=== PATIENT | female | born 1955 | race Caucasian/White ===

== ENCOUNTER 2019-11-30 09:30 | Emergency (ER) | payer MEDICARE, MEDICAID, SELFPAY ==
--- NOTE | ~2019-11-30 | CT_ITS ---
EXAMINATION: CT abdomen pelvis w con DATE: 11/30/2019 11:28 INDICATION: Abdominal pain. Constipation. TECHNIQUE: Computed tomography (CT) of the abdomen and pelvis was performed with 100 cc Omnipaque 350 intravenous contrast. Automated exposure control and iterative reconstruction technique were employe d. Exam dose: 1479.94 mGy-cm total exam DLP. COMPARISON: None. FINDINGS: There are calcified pulmonary granulomas in the lower lobes. No pulmonary infiltrate or con solidation is noted at the lung bases. Foramen of Morgagni fat and lateral segment left hepatic herniation is noted. Status post cholecystectomy. No hepatic, splenic, pancreatic, adrenal space-occupying mass lesion is evident. There is bilateral renal scarring, right greater than left. Approximately one or 2 pinpoint nonobstru cting right renal stones and several possible pinpoint nonobstructing left renal stones may be presen t; nephrolithiasis would be better evaluated on noncontrast examination. Approximately 6 mm exophytic anterior upper pole right renal cyst is suggested. No ureteral calculus or hydroureteronephrosis. There is a small amount of air within the nondependent aspect of the urinary bladder. There is diffus e bladder wall thickening. There is a Karimi catheter within the urinary bladder, which likely account s for the air. The uterus and adnexal areas are unremarkable. There is atherosclerotic calcification of the abdominal aorta and at the origins of celiac and superi or mesenteric and renal arteries, as well as bilateral iliac artery calcifications. No abdominal aort ic aneurysm. No intraperitoneal or retroperitoneal or pelvic mass lesion or adenopathy or ascites is evident. There is a prominent amount of fecal material within the colon. No bowel obstruction is evident. No i ntraperitoneal free air. There is an upper right ventral fat-containing abdominal wall hernia measuring up to approximately 5. 5 cm maximal transverse dimension. Additional smaller fat-containing supraumbilical right ventral abd ominal wall hernia is noted, in addition to a small fat-containing umbilical hernia. There is skin thickening and some subcutaneous fat stranding in the anterior abdominal wall. Degenerative changes of the thoracic and lumbar spine including degenerative disc disease at L5-S1. N o suspicious osteolytic or osteoblastic lesions are noted IMPRESSION: Status post cholecystectomy Bilateral renal scarring; cannot exclude small pinpoint nonobstructing kidney stones 6 mm right renal cyst Diffuse bladder wall thickening; recommend correlation for cystitis Prominent amount of fecal material within the colon, consistent with history of constipation; no lynn l obstruction is evident Right supraumbilical ventral abdominal wall fat-containing hernias and small fat-containing umbilical hernia Reviewed, dictated and finalized at [facility] Reviewed, dictated and finalized at [facility]. IMPRESSION: Status post cholecystectomy Bilateral renal scarring; cannot exclude small pinpoint nonobstructing kidney s tones 6 mm right renal cyst Diffuse bladder wall thickening; recommend correlation for cystitis Prominent amount of fecal material within the colon, consistent with history of constipation; no bowel obstruction is evident Right supraumbilical ventral abdominal wall fat-containing hernias and small fa t-containing umbilical hernia
[2019-11-30 09:33] VITALS: BP 183/81; PULSE 84; RESP 27; TEMP 37; O2SAT 90
--- NOTE | 2019-11-30 10:41 | ED.ABDPAIN ---
HPI - Abdominal Pain General Chief Complaint: Abdominal Pain Stated Complaint: abd pain Time Seen by Provider: 11/30/19 10:31 Source: patient Mode of arrival: ambulatory Limitations: no limitations History of Present Illness HPI narrative: Patient is a 64-year-old female who presents to the emergency department with complaint of abdominal pain. Patient reports onset of symptoms a couple of weeks ago. Patient was significantly constipated and took laxatives with alleviation of her constipation, but reports persistent burning sensation all across her abdomen since that time. Patient states the pain has persisted and feels like it is getting worse. She has more significant pain notably in the left lower quadrant compared to the rest of her abdomen. She states she thinks she may be getting constipated again she has not had a bowel movement in a couple of days. Patient has chronic indwelling Karimi catheter for chronic bladder problems MD elicited complaint: abdominal pain Pertinent past history: constipation Onset (ago): week(s) Pain Consistency: constant Location: diffuse and LLQ (Worst) Quality: burning Associated symptoms: constipation Treatments prior to arrival: other (took laxatives) Related Data Home Medications Medication Instructions Recorded Confirmed amlodipine 10 mg tablet 10 mg PO DAILY 08/13/19 11/30/19 blood sugar diagnostic #10 each 08/13/19 08/13/19 citalopram 20 mg tablet 20 mg PO DAILY 08/13/19 08/13/19 flash glucose sensor #1 each 08/13/19 08/13/19 levothyroxine 75 mcg tablet 75 mcg PO QAM tablet 08/13/19 11/30/19 lisinopril 40 mg tablet 40 mg PO DAILY 08/13/19 11/30/19 omeprazole 20 mg capsule,delayed 20 mg PO DAILY 08/13/19 11/30/19 release pravastatin 80 mg tablet 80 mg PO DAILY 08/13/19 11/30/19 pregabalin 100 mg capsule 100 mg PO BID 08/13/19 08/13/19 warfarin 4 mg tablet 4 mg PO DAILY 08/13/19 11/30/19 fluticasone furoate mcg INHALATION 11/30/19 hydrochlorothiazide 12.5 mg PO DAILY 11/30/19 11/30/19 Allergies Allergy/AdvReac Type Severity Reaction Status Date / Time Sulfa (Sulfonamide Allergy Unknown Unknown Verified 11/30/19 09:41 Antibiotics) cephalexin Allergy Unknown Verified 11/30/19 09:41 Review of Systems Review of Systems: All systems reviewed & are unremarkable except as noted in HPI and below Gastrointestinal: Gastrointestinal: Reports abdominal pain, Reports constipation, Denies diarrhea, Denies nausea and Denies vomiting Genitourinary: Genitourinary: Reports other (Urine leaking around Karimi catheter) [facility] Social History Social History Smoking status: Never smoker Gender identity (if verbalized by the patient): Female Exam Const: General: cooperative, no acute distress and alert Nutritional Appearance: obese morbidly obese Orientation/consciousness: patient oriented x3 Limitations: no limitations Eyes: Conjunctivae: conjunctivae normal Pupils: Equal, round and reactive pupils present Resp: Effort & Inspection: normal respiratory effort Auscultation: clear to auscultation bilaterally Cardio: Rate: regular rate Rhythm: regular rhythm GI: Inspection: Pannus present and obesity GI Palp: Yes Soft to palpation, Yes Tenderness to palpation present (GI) (Diffuse), No Guarding due to palpation present (GI) and No Rebound tenderness present Auscultation: normal bowel sounds Urinary Catheter: Urinary Catheter: patent and draining and urine clear Skin: General skin exam: normal color and no rashes or lesions noted Neuro: General: patient oriented x3 Cognition (Neuro): normal cognition Speech: normal speech Extrem: General: normal to inspection, full ROM, no clubbing, cyanosis or edema and edema bilateral Psych: Mental Status: mental status grossly normal Affect: normal affect Attitude: cooperative Course Course Emergency Course: Patient has findings of constipation without other acute abdominal abnorm
[2019-11-30 11:10] LABS: Basophils Percent Auto 0.3 % (0.2-1.2); Eosinophils Absolute Auto 0.1 K/mm3 (0-0.3); Eosinophils Percent Auto 0.6 % (0-4.4); Hematocrit 38.9 % (37.0-47.0); Immature Granulocyte Absolute 0.03 K/mm3 (0.00-0.031); Immature Granulocyte Percent A 0.3 % (0-0.5); Lymphocytes Absolute Auto 1.91 K/mm3 (0.9-3.2); Lymphocytes Percent Auto 20.5 % (18.3-44.2); Mean Corpuscular HGB Conc 30.8 g/dl (32-36); Mean Corpuscular Hemoglobin 26.4 pg (26-34); Mean Corpuscular Volume 85.7 fl (80-100); Mean Platelet Volume 10.1 fl (7.4-10.4); Monocytes Absolute Auto 0.7 K/mm3 (0.1-0.6); Monocytes Percent Auto 7.8 % (2.6-8.5); Neutrophils Absolute Auto 6.6 K/mm3 (1.3-6.7); Neutrophils Percent Auto 70.5 % (45.5-73.1); Platelet Count Result 236 k/mm3 (150-375); Red Blood Count 4.54 M/mm3 (4.2-5.4); Red Cell Distribution Width 16.1 % (11.5-14.5); White Blood Count 9.3 K/mm3 (4.5-10.0)
[2019-11-30 11:18] LABS: Estimated CRCL calculation 111 ml/min; Estimated Glomerular Filt Rate > 60
[2019-11-30 11:22] LABS: Alanine Aminotransferase 23 U/L (4-35); Albumin Level 4.2 g/dL (3.5-5.1); Alkaline Phosphatase 61 U/L (38-126); Aspartate Amino Transferase 18 U/L (14-36); Bilirubin,Total 0.4 mg/dL (0.2-1.3); Blood Urea Nitrogen 14 mg/dL (7-17); Calcium 8.9 mg/dL (8.4-10.2); Carbon Dioxide 30 mmol/L (22-30); Chloride 96 mmol/L (98-107); Estimated CRCL calculation 111 ml/min; Estimated Glomerular Filt Rate > 60; Glucose 168 mg/dL (65-105); Lipase 61 U/L (23-300); Potassium 4.3 mmol/L (3.4-5.0); Sodium 131 mmol/L (137-145)
[2019-11-30 12:05] LABS: Add Urine Microscopic? YES; Appearance Urine Clear (Clear); Bacteria Urine Trace /hpf; Bilirubin Urine Negative (Negative); Budding Yeast Urine Present /hpf; Color Urine Yellow (Yellow); Glucose Urine UA 1+ mg/dL (Negative); Ketones Urine Negative (Negative); Leukocyte Esterase Ur 1+ LEU/UL (Negative); Mucus Urine Rare /lpf; Nitrate Urine Negative (Negative); Protein Urine 1+ mg/dL (Negative); Specific Grav Ur 1.018 (1.001-1.035)
[2019-11-30 12:26] LABS: Blood Urine Negative (Negative)
[2019-11-30 12:33] VITALS: BP 195/84; PULSE 80; RESP 15; O2SAT 90
[2019-11-30] MEDS: BISACODYL 5 MG TABLET EC 10 MG PO (13:30)
--- NOTE | 2019-11-30 13:56 | ECG_ITS ---
Measurements Intervals [place] Rate: 81 P: 56 [place]: 136 QRS: -12 QRSD: 108 T: 34 QT: 354 QTc: 412 Interpretive Statements SINUS RHYTHM EARLY PRECORDIAL R/S TRANSITION POSSIBLE LEFT VENTRICULAR HYPERTROPHY BASELINE ARTIFACT- I, II, III, AVL, AVF, V1 BORDERLINE ECG Electronically Signed On 11-30-2019 14:49:20 CDT by Caleb Huddleston D.O.
== END 2019-11-30 14:21 | disposition home or self-care (01) ==
PROVIDERS: Emergency Provider Emergency Medicine; PCP Internal Medicine
DX: R10.84 Generalized abdominal pain (principal); K59.00 Constipation, unspecified
CPT/HCPCS: 36415; 74177; 80053; 81001; 83690; 85025; 87077; 87086; 87088; 87186; 93005; 96365; 99284; A9270; J0131; Q9967

== ENCOUNTER 2020-01-25 01:14 | Outpatient (CLI) | payer MEDICARE, MEDICAID, SELFPAY ==
[2020-01-25 18:41] LABS: SARS-CoV-2 RNA PCR Negative
== END 2020-01-25 01:15 | disposition home or self-care (01) ==
LOC: ANHCOVIDDT 01:14
PROVIDERS: PCP Internal Medicine; Visit Provider Internal Medicine Gastroenterology
DX: Z01.818 Encounter for other preprocedural examination (principal); Z11.59 Encounter for screening for other viral diseases
CPT/HCPCS: 87635; C9803; U0003

== ENCOUNTER 2020-01-27 01:54 | Day surgery (SDC) | payer MEDICARE, MEDICAID, SELFPAY ==
[2020-01-19 15:43] VITALS: BMI 54.3
[2020-01-27 09:21] VITALS: BP 173/74; PULSE 87; RESP 20; TEMP 36.7; O2SAT 93
--- NOTE | 2020-01-27 09:34 | WPDANESEPPF ---
Anes - Initial Pre Proc Eval Procedure: Operation Date: 01/27/20 10:30 Proposed Procedures p Screening Colonoscopy - Arthur Joshi MD Date/Time: 01/27/20 09:34 Surgeon: Arthur Joshi MD Pre Op Diagnosis: Neoplasm Screening Patient Data Age: 64 Gender: F Height: 5 ft 3 in Weight: 300 kg Last Vital Signs Temp 98.0 F 01/27/20 09:21 Pulse 87 01/27/20 09:21 Resp 20 01/27/20 09:21 BP 173/74 H 01/27/20 09:21 Pulse Ox 93 01/27/20 09:21 Allergies Allergy/AdvReac Type Severity Reaction Status Date / Time Sulfa (Sulfonamide Allergy Unknown Rash Verified 01/27/20 09:19 Antibiotics) cephalexin Allergy Rash Verified 01/27/20 09:19 Home Medications Medication Instructions Recorded Confirmed Type amlodipine 10 mg tablet 10 mg PO QAM 08/13/19 01/19/20 History blood sugar diagnostic #10 each 08/13/19 01/14/20 History citalopram 20 mg tablet 20 mg PO HS 08/13/19 01/19/20 History flash glucose sensor #1 each 08/13/19 01/14/20 History levothyroxine 75 mcg tablet 75 mcg PO QAM tablet 08/13/19 01/19/20 History lisinopril 40 mg tablet 40 mg PO DAILY 08/13/19 01/19/20 History omeprazole 20 mg capsule,delayed 20 mg PO QAM 08/13/19 01/19/20 History release fluticasone furoate 50 mcg INHALATION DAILY PRN 11/30/19 01/19/20 History hydrochlorothiazide 12.5 mg PO DAILY 11/30/19 01/19/20 History warfarin 4 mg tablet 8 mg PO EVERY OTHER DAY tablet 12/24/19 01/19/20 History insulin glargine U-300 conc 300 125 unit SUB-Q QPM 90 Days #42 ml 01/14/20 01/19/20 Rx unit/mL (3 mL) subcutaneous pen insulin lispro 200 unit/mL (3 mL) 28 - 32 unit SUBCUT TID 90 Days 01/14/20 01/19/20 Rx subcutaneous pen #48 ml metformin 1,000 mg tablet 1,000 mg PO BID 90 Days #180 tablet 01/14/20 01/19/20 Rx pen needle, diabetic 31 gauge x #400 each 01/14/20 01/14/20 Rx 11/27 pravastatin 80 mg tablet 80 mg PO QPM tablet 01/14/20 01/19/20 History pregabalin 100 mg capsule 100 mg PO TID cap 01/14/20 01/19/20 History linaclotide [Linzess] 145 mcg PO DAILY PRN 01/19/20 01/19/20 History mirabegron [Myrbetriq] 50 mg PO QAM 01/19/20 01/19/20 History solifenacin 5 mg PO QAM 01/19/20 01/19/20 History warfarin 6 mg PO EVERY OTHER DAY 01/19/20 01/19/20 History Patient hx anesthesia problems: none Family hx anesthesia problems: none [facility] Social History Social History Smoking status: Never smoker Gender identity (if verbalized by the patient): Female Anes - Eval Final PreProcedure Day of Procedure 01/27/20 09:34 Patient weight: super morbidly obese Heart: regular rate and rhythm Lungs: clear to auscultation Airway: Mallampati scale class III Neurological: alert and oriented Last oral intake: >/= 8 hours ASA classification: IV Emergent: no Anesthesia type and monitoring: general GIVS and standard monitoring Informed Consent: The patient's anesthetic plan and its attendant risks and benefits were discussed with the patient/family/POA. Questions were solicited and answers provided to the satisfaction of the patient/family/POA.
[2020-01-27] MEDS: LACTATED RINGERS 1,000 ML 150 ML IV CONT (09:50)
[2020-01-27 09:54] LABS: Glucose Point of Care 165 (65-105)
--- NOTE | 2020-01-27 10:02 | PM.HPGS ---
History of Present Illness History of Present Illness Consent: Risks, benefits, and alternatives have been discussed and questions answered. Patient agrees to proceed with procedure. Chief complaint: Neoplasm Screening Narrative: Tiffany Malone is a 64 year old female with lower abdominal pain and constipation, never had colonoscopy Review of Systems Constitutional: Constitutional: Denies headache(s) and Denies weakness Eyes: Eyes: Denies blurry vision ENT: Reports Normal hearing present, Denies headache(s) and Denies neck pain Cardiovascular: Cardiovascular: Denies chest pain and Denies dyspnea Respiratory: Respiratory: Denies dyspnea Gastrointestinal: Gastrointestinal: Reports no additional gastrointestinal complaints Genitourinary: Genitourinary: Denies dysuria Musculoskeletal: Musculoskeletal: Denies neck pain Integumentary/Breasts: Skin/Breast: Denies dry skin Neurologic: Reports Normal hearing present, Denies headache(s) and Denies weakness Psychiatric: Psychiatric: Denies anxiety Endocrine: Endocrine: Denies change in body appearance Hematologic/Lymphatic: Hematologic/Lymphatic: Denies easy bleeding Allergic/Immunologic: Allergic/Immunologic: Denies urticaria PMFSH Social History Social History Smoking status: Never smoker Gender identity (if verbalized by the patient): Female Meds Home Medications and Allergies Home Medications Medication Instructions Recorded Confirmed Type amlodipine 10 mg tablet 10 mg PO QAM 08/13/19 01/27/20 History blood sugar diagnostic #10 each 08/13/19 01/14/20 History citalopram 20 mg tablet 20 mg PO HS 08/13/19 01/27/20 History flash glucose sensor #1 each 08/13/19 01/14/20 History levothyroxine 75 mcg tablet 75 mcg PO QAM tablet 08/13/19 01/27/20 History lisinopril 40 mg tablet 40 mg PO DAILY 08/13/19 01/27/20 History omeprazole 20 mg capsule,delayed 20 mg PO QAM 08/13/19 01/27/20 History release fluticasone furoate 50 mcg INHALATION DAILY PRN 11/30/19 01/27/20 History hydrochlorothiazide 12.5 mg PO DAILY 11/30/19 01/27/20 History warfarin 4 mg tablet 8 mg PO EVERY OTHER DAY tablet 12/24/19 01/27/20 History insulin glargine U-300 conc 300 125 unit SUB-Q QPM 90 Days #42 ml 01/14/20 01/27/20 Rx unit/mL (3 mL) subcutaneous pen insulin lispro 200 unit/mL (3 mL) 28 - 32 unit SUBCUT TID 90 Days 01/14/20 01/27/20 Rx subcutaneous pen #48 ml metformin 1,000 mg tablet 1,000 mg PO BID 90 Days #180 tablet 01/14/20 01/27/20 Rx pen needle, diabetic 31 gauge x #400 each 01/14/20 01/14/20 Rx /16 pravastatin 80 mg tablet 80 mg PO QPM tablet 01/14/20 01/27/20 History pregabalin 100 mg capsule 100 mg PO TID cap 01/14/20 01/27/20 History linaclotide [Linzess] 145 mcg PO DAILY PRN 01/19/20 01/27/20 History mirabegron [Myrbetriq] 50 mg PO QAM 01/19/20 01/27/20 History solifenacin 5 mg PO QAM 01/19/20 01/27/20 History warfarin 6 mg PO EVERY OTHER DAY 01/19/20 01/27/20 History Allergies Allergy/AdvReac Type Severity Reaction Status Date / Time Sulfa (Sulfonamide Allergy Unknown Rash Verified 01/27/20 09:19 Antibiotics) cephalexin Allergy Rash Verified 01/27/20 09:19 Vital Signs Vital Signs - 24 hr 01/27/20 09:21 Temperature 98.0 F Pulse Rate 87 Respiratory Rate 20 Blood Pressure 173/74 H Pulse Oximetry 93 Exam Const: General: comfortable and no acute distress Nutritional Appearance: obese HENMT: General nose exam: Normal nares present Eyes: General: appearance normal, both eyes and all related structures Neck: Neck: no JVD Resp: Auscultation: clear to auscultation bilaterally Cardio: Rate: regular rate Rhythm: regular rhythm GI: Inspection: non-distended GI Palp: Yes Soft to palpation Skin: General skin exam: normal color Neuro: General: gait normal Speech: normal speech Extrem: General: normal to inspection Psych: Mental Status: mental status grossly nor
[2020-01-27 10:59] VITALS: BP 113/66; PULSE 75; RESP 20; O2SAT 90
[2020-01-27 11:09] VITALS: BP 143/63; PULSE 78; RESP 20; O2SAT 92
[2020-01-27 11:19] VITALS: BP 141/72; PULSE 77; RESP 20; O2SAT 92
== END 2020-01-27 11:02 | disposition home or self-care (01) ==
PROVIDERS: PCP Internal Medicine; Visit Provider Internal Medicine Gastroenterology
PROC: 0DJD8ZZ Inspection of Lower Intestinal Tract, Via Natural or Artificial Opening Endoscopic (ICD-10-PCS; CPT 45378; principal; 2020-01-27 10:30)
DX: C18.2 Malignant neoplasm of ascending colon (principal); D12.2 Benign neoplasm of ascending colon; D12.3 Benign neoplasm of transverse colon; K57.30 Diverticulosis of large intestine without perforation or abscess without bleeding; K63.89 Other specified diseases of intestine; K59.00 Constipation, unspecified; I82.409 Acute embolism and thrombosis of unspecified deep veins of unspecified lower extremity; Z79.01 Long term (current) use of anticoagulants; Z79.4 Long term (current) use of insulin; Z79.84 Long term (current) use of oral hypoglycemic drugs; E66.01 Morbid (severe) obesity due to excess calories; Z68.45 Body mass index [BMI] 70 or greater, adult
CPT/HCPCS: 45385; 45381; 45380; 87635; 88305; C9803; J2704; J7120; U0003

== ENCOUNTER 2020-03-29 11:41 | Outpatient (CLI) | payer MEDICARE, MEDICAID, SELFPAY ==
[2020-03-29 13:42] LABS: INR 2.3
[2020-03-29 13:43] LABS: Partial Thromboplastin Time 44.4 SECONDS (22.3-36.8)
[2020-03-29 14:14] LABS: Carcinoembryonic Antigen 0.9 ng/mL (0.0-3.0)
== END 2020-03-29 11:42 | disposition home or self-care (01) ==
LOC: ANHSURGERY 11:46
PROVIDERS: Anesthesiology; PCP Internal Medicine; Visit Provider Surgery
DX: C18.9 Malignant neoplasm of colon, unspecified (principal); Z79.01 Long term (current) use of anticoagulants
CPT/HCPCS: 36415; 82378; 85610; 85730; 86850; 86900; 86901

== ENCOUNTER 2020-04-01 00:47 | Outpatient (CLI) | payer MEDICARE, MEDICAID, SELFPAY ==
[2020-04-01 17:08] LABS: SARS-CoV-2 RNA PCR Negative
== END 2020-04-01 00:48 | disposition home or self-care (01) ==
LOC: ANHCOVIDDT 00:48
PROVIDERS: PCP Internal Medicine; Visit Provider Surgery
DX: Z01.812 Encounter for preprocedural laboratory examination (principal); Z11.59 Encounter for screening for other viral diseases
CPT/HCPCS: 87635; C9803; U0003

== ENCOUNTER 2020-04-04 13:12 | Inpatient (IN) | payer MEDICARE, MEDICAID, SELFPAY ==
[2020-03-29 12:40] VITALS: BP 158/74; PULSE 88; RESP 20; TEMP 36.7; BMI 62.4
[2020-04-04] VITALS (15 sets, daily range): BP systolic 145–168; BP diastolic 61–76; PULSE 75–96; RESP 12–25; TEMP 36.3–36.7; O2SAT 90–100; BMI 59.9
--- NOTE | ~2020-04-04 | XR_ITS ---
XR chest port-a-cath/central 04/04/2020 13:16 Indication: Post central line placement Procedure: AP portable chest Comparison: No prior studies for comparison. Findings: Right IJ central line tip in the SVC. Mild interstitial edema. Cardiomegaly. No pleural eff usion or pneumothorax. No acute osseous abnormality. Impression: 1: Cardiomegaly with mild interstitial edema. Reviewed, dictated and finalized at location A. Impression: 1: Cardiomegaly with mild interstitial edema.
--- NOTE | 2020-04-04 07:47 | PM.IMHP ---
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 Pt was c/o some mild abd pain, bloating, constipation and had screening colonoscopy on 01/26. Pt had multiple polyps removed and also noted cancer in mid ascending colon. Pt has multiple med issues and anticoagulation has been stopped at this time. Pt denies any changes since office visit. Review of Systems Constitutional: Constitutional: Denies anorexia, Denies chills, Reports fatigue, Denies headache(s), Reports lethargy, Denies malaise, Denies poor appetite, Reports weakness, Denies weight gain and Denies weight loss Eyes: Eyes: Reports no additional eye complaints and Denies change in vision ENT: Reports system reviewed and no additional complaints, except as documented, Denies headache(s), Denies hearing loss and Denies sore throat Cardiovascular: Cardiovascular: Reports no additional cardiovascular complaints, Denies chest pain, Denies palpitations and Denies dyspnea Respiratory: Respiratory: Denies cough, Reports dyspnea and Reports dyspnea on exertion Gastrointestinal: Gastrointestinal: Reports abdominal pain, Denies melena, Reports bloating, Denies hematochezia, Denies change in stool character, Reports constipation, Denies heartburn, Denies diarrhea, Denies nausea and Denies vomiting Genitourinary: Genitourinary: Denies urinary frequency, Denies dysuria and Denies urinary urgency Musculoskeletal: Musculoskeletal: Reports no additional musculoskeletal complaints Integumentary/Breasts: Skin/Breast: Reports system reviewed and no additional complaints, except as docu, Denies pruritus, Denies lesions and Denies wounds Neurologic: Reports system reviewed and no additional complaints, except as documented, Denies confusion and Denies headache(s) Psychiatric: Psychiatric: Reports no additional psychiatric complaints and Denies confusion Endocrine: Endocrine: Reports no additional endocrine complaints, Denies fatigue and Denies palpitations Hematologic/Lymphatic: Hematologic/Lymphatic: Reports no additional hematologic/lymphatic complaints Allergic/Immunologic: Allergic/Immunologic: Reports no additional allergic/immunologic complaints PMFSH Past Medical History Medical History Acquired hypothyroidism Arthritis Constipation Controlled diabetes mellitus with hyperglycemia, with long-term current use of insulin DVT (deep venous thrombosis) High blood cholesterol High blood pressure Hypertension Kidney stones Lower abdominal pain Morbid obesity Peripheral polyneuropathy Spinal epidural abscess Thyroid disease Type 2 diabetes mellitus with hyperglycemia Surgical History Surgical History H/O colonoscopy History of cholecystectomy Status post lumbar spine operative procedure for decompression of spinal cord Family History Family History Father Hypertension Diabetes mellitus Mother COPD (chronic obstructive pulmonary disease) Diabetes mellitus Hypertension Breast cancer Cervical cancer Sibling CHF (congestive heart failure) COPD (chronic obstructive pulmonary disease) Diabetes mellitus Hypertension Other Depression Family history of malignant neoplasm of breast Family history of obesity Family history of osteoporosis Family history of thyroid disease Social History Social History Smoking status: Never smoker Alcohol intake: never Substance use: never Living arrangements: alone Additional occupation/education comments: disability Gender identity (if verbalized by the patient): Female Spiritual care concerns: No Meds Home Medications and Allergies Home
[2020-04-04 09:42] LABS: Glucose Point of Care 122 (65-105)
--- NOTE | 2020-04-04 09:45 | WPDANESEPPF ---
Anes - Initial Pre Proc Eval Procedure: Operation Date: 04/04/20 10:30 Proposed Procedures p Hand Assisted Laparoscopic Right Colon Resection - Yaima David MD Date/Time: 04/04/20 09:45 Surgeon: Yaima David MD Pre Op Diagnosis: Colon Ca Patient Data Age: 64 Gender: F Height: 5 ft 3 in Weight: 160 kg Last Vital Signs Temp 36.7 C 03/29/20 12:40 Pulse 88 03/29/20 12:40 Resp 20 03/29/20 12:40 BP 158/74 H 03/29/20 12:40 Allergies Allergy/AdvReac Type Severity Reaction Status Date / Time Sulfa (Sulfonamide Allergy Intermediate Rash Verified 04/04/20 08:56 Antibiotics) cephalexin Allergy Rash/Hive Verified 04/04/20 08:56 Home Medications Medication Instructions Recorded Confirmed Type amlodipine 10 mg tablet 10 mg PO QAM 08/13/19 04/04/20 History blood sugar diagnostic #10 each 08/13/19 01/14/20 History citalopram 20 mg tablet 20 mg PO HS 08/13/19 04/04/20 History flash glucose sensor #1 each 08/13/19 01/14/20 History levothyroxine 75 mcg tablet 75 mcg PO QAM tablet 08/13/19 04/04/20 History lisinopril 40 mg tablet 40 mg PO DAILY 08/13/19 04/04/20 History omeprazole 20 mg capsule,delayed 20 mg PO QAM 08/13/19 04/04/20 History release hydrochlorothiazide 12.5 mg PO DAILY 11/30/19 04/04/20 History warfarin 4 mg tablet 8 mg PO DAILY tablet 12/24/19 04/04/20 History insulin glargine U-300 conc 300 125 unit SUB-Q QPM 90 Days #42 ml 01/14/20 04/04/20 Rx unit/mL (3 mL) subcutaneous pen insulin lispro 200 unit/mL (3 mL) 28 - 32 unit SUBCUT TID 90 Days 01/14/20 04/04/20 Rx subcutaneous pen #48 ml pen needle, diabetic 31 gauge x #400 each 01/14/20 01/14/20 Rx 16 pravastatin 80 mg tablet 80 mg PO QPM tablet 01/14/20 04/04/20 History pregabalin 100 mg capsule 100 mg PO TID cap 01/14/20 04/04/20 History linaclotide [Linzess] 145 mcg PO DAILY PRN 01/19/20 03/29/20 History mirabegron [Myrbetriq] 50 mg PO QAM 01/19/20 04/04/20 History solifenacin 5 mg PO QAM 01/19/20 04/04/20 History coenzyme Q10 200 mg/gram oral 200 mg PO DAILY 02/02/20 04/04/20 History powder melatonin 3 mg capsule 3 mg PO HS 02/02/20 04/04/20 History multivitamin 1 tablet PO DAILY 02/02/20 04/04/20 History erythromycin 500 mg tablet 500 mg PO .COMPLEX #6 tablet 02/03/20 04/04/20 Rx neomycin 500 mg tablet 500 mg PO .COMPLEX #6 tablet 02/03/20 04/04/20 Rx zolpidem [Ambien] 5 mg PO HS PRN 03/29/20 04/04/20 History metformin 1,000 mg tablet 1,000 mg PO BID 90 Days #180 tablet 04/01/20 Rx Laboratory Tests 04/04/20 04/04/20 09:00 09:39 PT Pending INR Pending APTT Pending POC Capillary Glucose 122 mg/dl H mg/dl (65-105) Patient hx anesthesia problems: none Family hx anesthesia problems: none PMFSH Past Medical History Medical History Acquired hypothyroidism Arthritis Constipation Controlled diabetes mellitus with hyperglycemia, with long-term current use of insulin DVT (deep venous thrombosis) High blood cholesterol High blood pressure Hypertension Kidney stones Lower abdominal pain Morbid obesity Peripheral polyneuropathy Spinal epidural abscess Thyroid disease Type 2 diabetes mellitus with hyperglycemia Surgical History Surgical History H/O colonoscopy History of cholecystectomy Status post lumbar spine operative procedure for decompression of spinal cord Family History Family History Father Hypertension Diabetes mellitus Mother COPD (chronic obstructive pulmonary disease) Diabetes mellitus Hypertension Breast cancer Cervical cancer Sibling CHF (congestive heart failure) COPD (chronic obstructive pulmonary disease) Diabetes mellitus Hypertension Other Depression Family history of malignant neoplasm of breast Family history of obesity Family history of osteoporosis F
[2020-04-04 09:55] LABS: INR 1.1; Prothrombin Time 14.1 Seconds (11.1-14.7)
--- NOTE | 2020-04-04 09:55 | WPDHPUPDATE1 ---
History and Physical Update Update Date/Time: 04/04/20 09:55 History and Physical has been reviewed, including an updated exam of the patient. There are NO changes in the patient's condition. Risks, benefits, and alternatives have been discussed and questions answered. Patient agrees to proceed with procedure.
[2020-04-04 09:56] LABS: Partial Thromboplastin Time 28.4 SECONDS (22.3-36.8)
[2020-04-04] MEDS: LACTATED RINGERS 1,000 ML 30 ML IV CONT ×3 (09:58→13:21)
[2020-04-04] MEDS: KETOROLAC 15 MG/ML VIAL (*BKC) IV PUSH (09:59)
[2020-04-04] MEDS: ALVIMOPAN 12 MG CAPSULE PO (09:59)
[2020-04-04] MEDS: ACETAMINOPHEN 500 MG TABLET 1000 MG PO (09:59)
[2020-04-04] MEDS: CLINDAMYCIN 900 MG/NS 50 ML 900 MG/50 ML PIGGYBACK 50 MG IVPB (10:26)
[2020-04-04] MEDS: HEPARIN SOD FLUSH 500 UNITS/5 ML SYRINGE IV PUSH (11:12)
[2020-04-04] MEDS: BUPIVACAINE/EPINEPHRINE 0.5% 30 ML VIAL INFILTRATE (11:23)
--- NOTE | 2020-04-04 12:57 | PM.PROC ---
Procedure Note - Detailed Date of procedure: 04/04/20 Pre-op diagnosis: Colon Ca Post-op diagnosis: same Procedure performed: placement of righ internal jugular triple lumen catheter c U/S guidance, hand assisted laparoscopic right colectomy, mobilization of hepatic flexure Description of procedure: The patient was taken to the operating room and placed in the supine position. After adequate induction of general anesthesia, the patient was prepped and draped normal sterile fashion. A time-out was then done to verify the patient's identity as well as the procedure being performed. I began by using the ultrasound and identifying the right internal jugular vein. I then used an 18 guage needle to gain access into the vein. I then fed the guidewire into the vein and removed the needle. The incision was then enlarged around the guidewire. I then place the dilator over the guidewire into the vein. Once done, I place the 16 cm TLC over the guidewire and into the RIJ. Once in, I removed the guidewire. I was able to easily draw and flush from all 3 ports. Sterile dressing including biopatch was placed. We then prepped and drapped the abdomen. I began by making a hand port incision around the umbilicus. This was carried down into the peritoneal cavity and there was no noted adhesions to the anterior abdominal wall. The hand port was then placed at this point. I then insufflated the abdomen through the hand port. I then placed the camera through the hand port under direct visualization I placed 2 5 mm ports in right lower and right mid abdomen. Once this was done, I examined the right abdomen. It was noted there was some scarring of the right colon to the right lateral abdominal wall and there was also adhesions near the hepatic flexure likely from previous tatooing of the specimen. Given this I slowly took down all these adhesions under direct visualization with the LigaSure device. Once the right colon was mobilized, I began my medial approach. I did this by 1st recognizing and transecting the right colic vessels. This was taken down near the base of the mesentery with the LigaSure. Once this was done, I carried this plane towards the hepatic flexure until I encountered the duodenum which was mobilized posteriorly. I then began taking down the lateral attachments of the terminal ileum and right colon including taking down the white line of [place] and the hepatic flexure. Once this was done my medial and lateral dissection planes met. I was able to easily manipulate the right colon. At this point, I extracorporealyzed the right colon and terminal ileum. I then transected the terminal ileum approximately 10 cm proximal to the ileo colic junction with a 75 PHYLICIA stapler. I then localized the tumor in the ascending colon, I measured 10 cm distal to this and transected the right colon at this point. Also noted was preservation of the middle colic vessels. I then performed a [id number] functional end-to-end anastomosis between the ileum and proximal transverse colon with a 75 PHYLICIA stapler followed by a TL 60 stapler. The anastomosis was noted to be tension-free and widely patent. I then copiously irrigated the abdomen, no other pathology was noted. I then closed the hand port incision with a 1 PDS suture at the fascial level. The skin was closed with 4 O Monocryl subcuticular sutures including the 5 mm ports sites. Dermabond was then placed on all wounds. The patient tolerated the procedure well. She was extubated in the operating room postoperatively and will be transferred to the recovery room in stable condition. Implants: Anesthesia: GETA Surgeon: Yaima David MD Estimated blood loss (mL): 100 Drains: No Packing: No Pathology: yes Complications: No immediate complications Condition: stable Disposition: PACU Findings: tatooed mass in ascending colon
[2020-04-04 13:12] LABS: Glucose Point of Care 199 (65-105)
[2020-04-04] MEDS: fentaNYL CITRATE INJ (*CRX) 100 MCG/2 ML VIAL 25 MCG IV PUSH ×4 (13:23→14:08)
--- NOTE | 2020-04-04 14:38 | ADMGEN ---
This patient, Tiffany Malone, was admitted to -. Patient/family oriented to hospital policies and general routines including ID bracelet, bed and alarms, visiting hours, pain management, procedures, bathroom and other care routines, personal items, smoking policy, room service/diet, and visiting hours. Valuables list has been completed. Information on how to activate the Rapid Response Team has been discussed. Patient/Family are encouraged to report perceived risks to care and to ask questions if they do not understand what they are told or what they should do.
[2020-04-04] MEDS: MORPHINE SULFATE (*CRX) 2 MG/ML INJ IV PUSH (14:47)
[2020-04-04] MEDS: LACTATED RINGERS 1,000 ML 100 ML IV CONT (14:53)
[2020-04-04] MEDS: HYDROcodone/acetaminophen (*CRX) 5-325 MG TABLET 1 TAB PO (15:35)
[2020-04-04] MEDS: GABAPENTIN 300 MG CAPSULE 600 MG PO (15:35)
[2020-04-04] MEDS: KETOROLAC 30 MG/ML VIAL (*BKC) IV PUSH (15:36)
[2020-04-04] MEDS: PREGABALIN (*CRX) 75 MG CAPSULE 150 MG PO (15:37)
[2020-04-04 16:32] LABS: Glucose Point of Care 236 (65-105)
[2020-04-04] MEDS: INSULIN ASPART (*BKC) 100 UNITS/ML 32 UNITS SUB-Q (16:56)
[2020-04-04] MEDS: PRAVASTATIN SODIUM 20 MG TABLET 80 MG PO (18:28)
[2020-04-04] MEDS: INSULIN GLARGINE (*BKC) 100 UNITS/ML 125 UNITS SUB-Q (21:18)
[2020-04-04] MEDS: CITALOPRAM HYDROBROMIDE 20 MG TABLET PO (21:18)
[2020-04-04] MEDS: MELATONIN 3 MG TABLET PO (21:18)
[2020-04-04] MEDS: PREGABALIN (*CRX) 50 MG CAPSULE 100 MG PO (21:18)
[2020-04-04 21:27] LABS: Glucose Point of Care 215 (65-105)
[2020-04-05] VITALS (14 sets, daily range): BP systolic 104–140; BP diastolic 45–81; PULSE 86–103; RESP 16–20; TEMP 36.6–37.1; O2SAT 92–96
[2020-04-05] MEDS: LACTATED RINGERS 1,000 ML 100 ML IV CONT ×3 (00:16→21:08)
[2020-04-05 00:29] LABS: Add Urine Microscopic? YES; Amorphous Sediment Urine Few; Appearance Urine Cloudy (Clear); Bacteria Urine Trace /hpf; Bilirubin Urine Negative (Negative); Blood Urine Negative (Negative); Cellular Casts Urine Present /lpf; Color Urine Yellow (Yellow); Glucose Urine UA 3+ mg/dL (Negative); Hyaline Casts Urine 50+ /lpf; Ketones Urine Trace mg/dL (Negative); Leukocyte Esterase Ur 2+ LEU/UL (Negative); Mucus Urine Rare /lpf; Nitrate Urine Positive (Negative); Protein Urine 1+ mg/dL (Negative); Specific Grav Ur 1.022 (1.001-1.035); Squamous Epithelial Cell Urine Occasional /hpf (Few); Urobilinogen Urine Negative mg/dL (<2.0); WBC Urine >75 /hpf
[2020-04-05 04:08] LABS: Glucose Point of Care 211 (65-105)
[2020-04-05 04:58] LABS: Hematocrit 32.2 % (37.0-47.0); Hemoglobin 9.6 g/dL (12.0-15.0); Mean Corpuscular HGB Conc 29.8 g/dl (32-36); Mean Corpuscular Hemoglobin 25.7 pg (26-34); Mean Corpuscular Volume 86.1 fl (80-100); Platelet Count Result 197 k/mm3 (150-375); Red Blood Count 3.74 M/mm3 (4.2-5.4); Red Cell Distribution Width 15.9 % (11.5-14.5)
[2020-04-05 05:11] LABS: Anion Gap 2 mmol/L (8-16); Blood Urea Nitrogen 12 mg/dL (7-17); Calcium 8.2 mg/dL (8.4-10.2); Carbon Dioxide 32 mmol/L (22-30); Chloride 99 mmol/L (98-107); Estimated CRCL calculation 104 ml/min; Estimated Glomerular Filt Rate > 60; Glucose 198 mg/dL (65-105); Potassium 4.5 mmol/L (3.4-5.0); Sodium 133 mmol/L (137-145)
[2020-04-05] MEDS: INSULIN ASPART (*BKC) 100 UNITS/ML 28 UNITS SUB-Q (07:56)
[2020-04-05] MEDS: amLODIPine BESYLATE 5 MG TABLET 10 MG PO (08:00)
[2020-04-05] MEDS: hydroCHLOROthiazide 12.5 MG CAPSULE PO (08:00)
[2020-04-05] MEDS: LEVOTHYROXINE SODIUM 75 MCG TABLET PO (08:00)
[2020-04-05] MEDS: PANTOPRAZOLE 40 MG TABLET PO (08:01)
[2020-04-05] MEDS: MIRABEGRON 50 MG ER TABLET PO (08:01)
[2020-04-05] MEDS: MULTIVITAMINS THERAPEUTIC TAB (*BKC) 1 TABLET PO (08:01)
[2020-04-05] MEDS: lisinopriL 20 MG TABLET 40 MG PO (08:01)
[2020-04-05] MEDS: SOLIFENACIN 5 MG TABLET PO (08:02)
[2020-04-05] MEDS: PREGABALIN (*CRX) 50 MG CAPSULE 100 MG PO ×3 (08:08→16:43)
[2020-04-05 08:11] LABS: Magnesium 1.4 mg/dL (1.6-2.3)
[2020-04-05 08:41] LABS: Glucose Point of Care 192 (65-105)
[2020-04-05] MEDS: HYDROcodone/acetaminophen (*CRX) 5-325 MG TABLET 1 TAB PO ×2 (10:50→20:41)
[2020-04-05 11:45] LABS: Glucose Point of Care 213 (65-105)
[2020-04-05] MEDS: ALVIMOPAN 12 MG CAPSULE PO ×2 (12:12→21:10)
--- NOTE | 2020-04-05 12:15 | PM.IMCN ---
Assessment and Plan Assessment and plan (1) Adenocarcinoma of colon: Code(s): C18.9 - Malignant neoplasm of colon, unspecified Status: Acute Assessment and Plan: Tiffany Malone is a 64 year old female Morbidly obese female with a past medical history diabetes, hypertension, hypothyroid DVT for which patient is taking warfarin, initially patient was seen in emergency depart with complaint of constipation CT scan was done did not show significant pathology other than constipation patient was discharged home on laxative, and followed up with GI and had a colonoscopy showed patient has a 25 mm x 30 mm fungating mass, patient was seen by surgery service and had a laparoscopy surgery and colon mass was removed we are consulted for medical management, today's postop day 1, patient complains of abdominal nausea or vomiting fever or chills, patient is not passing any gas, (2) Hx of deep venous thrombosis: Code(s): Z86.718 - Personal history of other venous thrombosis and embolism Status: Acute Assessment and Plan: patient is on Coumadin for DVT currently on hold, resume once okay with surgeon (3) Type 2 diabetes mellitus with hyperglycemia: Qualifiers: Diabetes mellitus truck terminal manager insulin use: with senior living use Qualified Code(s): E11.65 - Type 2 diabetes mellitus with hyperglycemia; Z79.4 - local intermodal truck driver (current) use of insulin Code(s): E11.65 - Type 2 diabetes mellitus with hyperglycemia Status: Acute Assessment and Plan: currently NPO will monitor with sliding scale and resume once patient is able to start the diabetic diet (4) Hypertension: Qualifiers: Hypertension type: essential hypertension Qualified Code(s): I10 - Essential (primary) hypertension Code(s): I10 - Essential (primary) hypertension Status: Acute Assessment and Plan: will continue home regimen and monitor HPI Data of Consult Consult date: 04/05/20 Requesting Physician: Yaima David MD Primary Care Provider: Nawaf Phillips, Consult Narrative Narrative: Tiffany Malone is a 64 year old female Morbidly obese female with a past medical history diabetes, hypertension, hypothyroid DVT for which patient is taking warfarin, initially patient was seen in emergency depart with complaint of constipation CT scan was done did not show significant pathology other than constipation patient was discharged home on laxative, and followed up with GI and had a colonoscopy showed patient has a 25 mm x 30 mm fungating mass, patient was seen by surgery service and had a laparoscopy surgery and colon mass was removed we are consulted for medical management, today's postop day 1, patient complains of abdominal nausea or vomiting fever or chills, patient is not passing any gas, Review of Systems Review of Systems: All systems reviewed & are unremarkable except as noted in HPI and below PMFSH Past Medical History Medical History Acquired hypothyroidism Arthritis Constipation Controlled diabetes mellitus with hyperglycemia, with long-term current use of insulin DVT (deep venous thrombosis) High blood cholesterol High blood pressure Hypertension Kidney stones Lower abdominal pain Morbid obesity Peripheral polyneuropathy Spinal epidural abscess Thyroid disease Type 2 diabetes mellitus with hyperglycemia Surgical History Surgical History H/O colonoscopy History of cholecystectomy Status post lumbar spine operative procedure for decompression of spinal cord Family History Family History Father Hypertension Diabetes mellitus Mother COPD (chronic obstructive pulmonary disease) Diabetes mellitus Hypertension Breast cancer Cervical cancer Sibling CHF (congestive heart failure) COPD (chronic obstr
[2020-04-05] MEDS: INSULIN ASPART (*BKC) 100 UNITS/ML 32 UNITS SUB-Q ×2 (12:20→16:49)
--- NOTE | 2020-04-05 14:19 | WPDANESPN ---
Anes - Prog Note Post-Op Date/Time: 04/05/20 14:19 Cardiovascular status: normal Respiratory status: normal Airway patency: baseline Mental status: baseline Post-Op hydration status: normal Vital Signs: Last Vital Signs Temp 37.1 C 04/05/20 10:13 Pulse 103 H 04/05/20 12:00 Resp 18 04/05/20 10:13 BP 120/81 04/05/20 10:13 Pulse Ox 93 04/05/20 10:13 Pain Score (VAS): 0 I/O: Intake & Output 04/04/20 04/05/20 04/05/20 23:59 07:59 15:59 Intake Total 1359 1561 1956 Output Total 850 Balance 8184 483 2453 Laboratory Tests 04/05/20 04:38 04/05/20 04:38 04/04/20 04/04/20 04/05/20 16:28 21:17 00:12 WBC RBC Hgb Hct MCV MCH MCHC RDW Plt Count MPV Sodium Potassium Chloride Carbon Dioxide Anion Gap BUN Creatinine Estim Creat Clear Calc Estimated GFR Glucose POC Capillary Glucose 236 H 215 H Calcium Magnesium Urine Color Yellow Urine Appearance Cloudy H Urine pH 5.0 Ur Specific [place] 1.022 Urine Protein 1+ H Urine Glucose (UA) 3+ H Urine Ketones Trace Ur Blood (Man) Negative Urine Nitrate Positive H Urine Bilirubin Negative Urine Urobilinogen Negative Leukocyte Esterase Rfl 2+ H Urine RBC 6-10 H Urine WBC >75 H Ur Squamous Epith Cells Occasional Amorphous Sediment Few H Urine Bacteria Trace Cellular Casts Present H Hyaline Casts 50+ H Urine Mucus Rare 04/05/20 04/05/20 04/05/20 04:05 04:38 04:38 WBC 13.0 H RBC 3.74 L Hgb 9.6 L Hct 32.2 L MCV 86.1 MCH 25.7 L MCHC 29.8 L RDW 15.9 H Plt Count 197 MPV 10.0 Sodium 133 L Potassium 4.5 Chloride 99 Carbon Dioxide 32 H Anion Gap 2 L BUN 12 Creatinine 0.70 Estim Creat Clear Calc 104 Estimated GFR > 60 Glucose 198 H POC Capillary Glucose 211 H Calcium 8.2 L Magnesium Urine Color Urine Appearance Urine pH Ur Specific [place] Urine Protein Urine Glucose (UA) Urine Ketones Ur Blood (Man) Urine Nitrate Urine Bilirubin Urine Urobilinogen Leukocyte Esterase Rfl Urine RBC Urine WBC Ur Squamous Epith Cells Amorphous Sediment Urine Bacteria Cellular Casts Hyaline Casts Urine Mucus 04/05/20 04/05/20 04/05/20 07:49 07:53 11:31 WBC RBC Hgb Hct MCV MCH MCHC RDW Plt Count MPV Sodium Potassium Chloride Carbon Dioxide Anion Gap BUN Creatinine Estim Creat Clear Calc Estimated GFR Glucose POC Capillary Glucose 192 H 213 H Calcium Magnesium 1.4 L Urine Color Urine Appearance Urine pH Ur Specific [place] Urine Protein Urine Glucose (UA) Urine Ketones Ur Blood (Man) Urine Nitrate Urine Bilirubin Urine Urobilinogen Leukocyte Esterase Rfl Urine RBC Urine WBC Ur Squamous Epith Cells Amorphous Sediment Urine Bacteria Cellular Casts Hyaline Casts Urine Mucus Post-procedural complaints: none Patient Feedback: Patient satisfied with anesthetic care.
[2020-04-05] MEDS: ENOXAPARIN 40 MG/0.4 ML SYRINGE SUB-Q (16:44)
[2020-04-05] MEDS: PRAVASTATIN SODIUM 20 MG TABLET 80 MG PO (16:54)
[2020-04-05 17:19] LABS: Glucose Point of Care 114 (65-105)
[2020-04-05] MEDS: MELATONIN 3 MG TABLET PO (21:09)
[2020-04-05] MEDS: CITALOPRAM HYDROBROMIDE 20 MG TABLET PO (21:10)
[2020-04-05] MEDS: SALINE 0.65% NAS SOLN 44 ML BTL 1 SPRAY NASAL (21:11)
[2020-04-05] MEDS: FLUTICASONE PROPIONATE 0.05% NA SPR 16 GM BTL (*BKC) 1 SPRAY NASAL (21:11)
--- NOTE | 2020-04-05 21:37 | PC.NURSE ---
BG 120 this evening with 125u lantus ordered. Called Jamia Gonzalez and received order to give only 50u then recheck around midnight and call if <115
[2020-04-05] MEDS: INSULIN GLARGINE (*BKC) 100 UNITS/ML 50 UNITS SUB-Q (21:39)
[2020-04-05 21:47] LABS: Glucose Point of Care 120 (65-105)
[2020-04-06] VITALS (13 sets, daily range): BP systolic 120–185; BP diastolic 57–72; PULSE 84–99; RESP 12–22; TEMP 36.4–37; O2SAT 90–95
[2020-04-06 00:38] LABS: Glucose Point of Care 213 (65-105)
[2020-04-06 05:32] LABS: Hematocrit 29.7 % (37.0-47.0); Hemoglobin 8.7 g/dL (12.0-15.0); Mean Corpuscular HGB Conc 29.3 g/dl (32-36); Mean Corpuscular Hemoglobin 24.9 pg (26-34); Mean Corpuscular Volume 84.9 fl (80-100); Mean Platelet Volume 9.7 fl (7.4-10.4); Platelet Count Result 186 k/mm3 (150-375); Red Cell Distribution Width 15.9 % (11.5-14.5); White Blood Count 10.8 K/mm3 (4.5-10.0)
[2020-04-06 05:49] LABS: Anion Gap 3 mmol/L (8-16); Blood Urea Nitrogen 10 mg/dL (7-17); Carbon Dioxide 32 mmol/L (22-30); Chloride 95 mmol/L (98-107); Estimated CRCL calculation 108 ml/min; Estimated Glomerular Filt Rate > 60; Glucose 173 mg/dL (65-105); Magnesium 1.4 mg/dL (1.6-2.3); Sodium 130 mmol/L (137-145)
[2020-04-06 07:55] LABS: Glucose Point of Care 203 (65-105)
[2020-04-06] MEDS: INSULIN ASPART (*BKC) 100 UNITS/ML 28 UNITS SUB-Q (08:08)
[2020-04-06] MEDS: LEVOTHYROXINE SODIUM 75 MCG TABLET PO (08:10)
[2020-04-06] MEDS: LACTATED RINGERS 1,000 ML 100 ML IV CONT (08:10)
[2020-04-06] MEDS: ACETAMINOPHEN 500 MG TABLET PO (09:03)
[2020-04-06] MEDS: MAGNESIUM SULF 2 GM/WATER 50ML 2 GM/50 ML BAG IVPB (09:03)
[2020-04-06] MEDS: lisinopriL 20 MG TABLET 40 MG PO (09:04)
[2020-04-06] MEDS: MIRABEGRON 50 MG ER TABLET PO (09:04)
[2020-04-06] MEDS: hydroCHLOROthiazide 12.5 MG CAPSULE PO (09:04)
[2020-04-06] MEDS: SOLIFENACIN 5 MG TABLET PO (09:04)
[2020-04-06] MEDS: MULTIVITAMINS THERAPEUTIC TAB (*BKC) 1 TABLET PO (09:04)
[2020-04-06] MEDS: ALVIMOPAN 12 MG CAPSULE PO ×2 (09:04→21:22)
[2020-04-06] MEDS: PANTOPRAZOLE 40 MG TABLET PO (09:04)
[2020-04-06] MEDS: MAGNESIUM OXIDE 400 MG TABLET PO (09:04)
[2020-04-06] MEDS: amLODIPine BESYLATE 5 MG TABLET 10 MG PO (09:04)
[2020-04-06] MEDS: ENOXAPARIN 40 MG/0.4 ML SYRINGE SUB-Q (09:05)
[2020-04-06] MEDS: FLUTICASONE PROPIONATE 0.05% NA SPR 16 GM BTL (*BKC) 1 SPRAY NASAL ×2 (09:05→21:21)
[2020-04-06] MEDS: PREGABALIN (*CRX) 50 MG CAPSULE 100 MG PO ×3 (09:06→17:45)
--- NOTE | 2020-04-06 10:09 | PM.PNGS ---
Progress Note: A&P Assessment and Plan (1) Adenocarcinoma of colon: Code(s): C18.9 - Malignant neoplasm of colon, unspecified Status: Acute Assessment and Plan: doing well, soft diet, cont OOB/IS, PT/OT (2) Type 2 diabetes mellitus with hyperglycemia: Qualifiers: Diabetes mellitus residential insulin use: with long term care phlebotomist use Qualified Code(s): E11.65 - Type 2 diabetes mellitus with hyperglycemia; Z79.4 - longterm (current) use of insulin Code(s): E11.65 - Type 2 diabetes mellitus with hyperglycemia Status: Acute Assessment and Plan: mgmt per medicine (3) Hypertension: Qualifiers: Hypertension type: essential hypertension Qualified Code(s): I10 - Essential (primary) hypertension Code(s): I10 - Essential (primary) hypertension Status: Acute Assessment and Plan: mgmt per medicine (4) Hx of deep venous thrombosis: Code(s): Z86.718 - Personal history of other venous thrombosis and embolism Status: Acute Assessment and Plan: cont Lovenox for now, will hold Coumadin for now, recheck H/H in am Subjective Subjective Date/Time Seen: 04/06/20 10:09 pt feels ok, reports incisional soreness improved, +flatus Review of Systems Constitutional: Constitutional: Denies body ache(s), Denies chills, Reports fatigue, Reports lethargy and Reports weakness Cardiovascular: Cardiovascular: Reports no additional cardiovascular complaints Respiratory: Respiratory: Reports no additional respiratory complaints Gastrointestinal: Gastrointestinal: Reports abdominal pain, Denies bloating, Denies nausea and Denies vomiting Exam Const: General: no acute distress Resp: Auscultation: diminished lung sounds Cardio: Rate: regular rate Rhythm: regular rhythm GI: Other: soft, sl dist, ely TTP, incisions C/D/I Objective Data Vital Signs Vital Signs: Vital Signs - 24 hr 04/05/20 10:10 04/05/20 10:13 04/05/20 12:00 Temperature 37.1 C Pulse Rate 100 103 H Respiratory Rate 18 Blood Pressure 120/81 Pulse Oximetry 93 93 04/05/20 14:00 04/05/20 16:00 04/05/20 19:11 Temperature 36.6 C 37.0 C Pulse Rate 94 86 94 Respiratory Rate 18 20 Blood Pressure 117/52 L 104/45 L Pulse Oximetry 93 93 04/05/20 20:00 04/05/20 21:11 04/06/20 00:00 Temperature Pulse Rate 89 98 Respiratory Rate Blood Pressure Pulse Oximetry 92 04/06/20 02:00 04/06/20 04:00 04/06/20 08:59 Temperature 36.8 C 37.0 C Pulse Rate 97 94 Respiratory Rate 12 18 Blood Pressure 137/65 155/66 H Pulse Oximetry 90 92 90 Intake/Output Intake/Output: Intake & Output 04/03/20 04/04/20 04/05/20 04/06/20 23:59 23:59 23:59 23:59 Intake Total 2021 5278 1300 Output Total 40 2300 650 Balance 1981 2978 650 Meds/Results Medications: Active Medications Generic Name Dose Route Start Last Admin Trade Name Freq PRN Reason Stop Dose Admin Acetaminophen 500 mg 04/04/20 13:14 04/06/20 09:03 Tylenol Tablet PO 500 mg Q6H PRN Administration Mild Pain (1-3) or Fever Hydrocodone Bitart/Acetaminophen 1 tab 04/04/20 13:14 04/05/20 20:41 [place] 5-325 Mg PO 1 tab Q4H PRN Administration Pain Rated 4-6 Alvimopan 12 mg 04/05/20 13:12 04/06/20 09:04 Entereg PO 04/12/20 13:13 12 mg Q12HR BASHIR Administration Amlodipine Besylate 10 mg 04/05/20 09:00 04/06/20 09:04 Norvasc PO 10 mg QAM BASHIR Administration Citalopram Hydrobromide 20 mg 04/04/20 21:00 04/05/20 21:10 Celexa PO 20 mg HS BASHIR Administration Enoxaparin Sodium 40 mg 04/05/20 09:00 04/06/20 09:05 Lovenox SUB-Q 40 mg DAILY BASHIR Administration Fluticasone Propionate 1 spray 04/05/20 21:00 04/06/20 09:05 Flonase 0.05% Nasal [place] NASAL 1 spray Q12HR BASHIR Administration Hydrochlorothiazide 12.5 mg 04/05/20 09:00 04/06/20 09:04 Hydrochlorothiazide PO 12.5 mg DAILY BASHIR Administration Lactated Ri
[2020-04-06 11:35] LABS: Glucose Point of Care 227 (65-105)
--- NOTE | 2020-04-06 12:01 | PM.IMPN ---
Progress Note: A&P Assessment and Plan (1) Adenocarcinoma of colon: Code(s): C18.9 - Malignant neoplasm of colon, unspecified Status: Acute Assessment and Plan: 04/06/20 12:01 Tiffany Malone is a 64 year old female Morbidly obese female with a past medical history diabetes, hypertension, hypothyroid DVT for which patient is taking warfarin, initially patient was seen in emergency depart with complaint of constipation CT scan was done did not show significant pathology other than constipation patient was discharged home on laxative, and followed up with GI and had a colonoscopy showed patient has a 25 mm x 30 mm fungating mass, on 04/05 patient was seen by surgery service and had a laparoscopy surgery and colon mass was removed we are consulted for medical management, today's on 04/06 postop day 2, patient had a small BM it was seen by her surgeon started the patient on clear liquid, patient states the pain is minimal able to participate in PT OT, will continue Lovenox monitor H&H and once okay with surgeon will resume the Coumadin for DVT, will continue to monitor and further recommendation to follow (2) Hx of deep venous thrombosis: Code(s): Z86.718 - Personal history of other venous thrombosis and embolism Status: Acute Assessment and Plan: patient is on Coumadin for DVT currently on hold, resume once okay with surgeon (3) Type 2 diabetes mellitus with hyperglycemia: Qualifiers: Diabetes mellitus assistant terminal manager insulin use: with care home use Qualified Code(s): E11.65 - Type 2 diabetes mellitus with hyperglycemia; Z79.4 - prison (current) use of insulin Code(s): E11.65 - Type 2 diabetes mellitus with hyperglycemia Status: Acute Assessment and Plan: currently NPO will monitor with sliding scale and resume once patient is able to start the diabetic diet (4) Hypertension: Qualifiers: Hypertension type: essential hypertension Qualified Code(s): I10 - Essential (primary) hypertension Code(s): I10 - Essential (primary) hypertension Status: Acute Assessment and Plan: will continue home regimen and monitor Subjective Date/time seen: 04/06/20 12:01 Tiffany Malone is a 64 year old female Morbidly obese female with a past medical history diabetes, hypertension, hypothyroid DVT for which patient is taking warfarin, initially patient was seen in emergency depart with complaint of constipation CT scan was done did not show significant pathology other than constipation patient was discharged home on laxative, and followed up with GI and had a colonoscopy showed patient has a 25 mm x 30 mm fungating mass, on 04/05 patient was seen by surgery service and had a laparoscopy surgery and colon mass was removed we are consulted for medical management, today's on 04/06 postop day 2, patient had a small BM it was seen by her surgeon started the patient on clear liquid, patient states the pain is minimal able to participate in PT OT, will continue Lovenox monitor H&H and once okay with surgeon will resume the Coumadin for DVT, will continue to monitor and further recommendation to follow Review of Systems Review of Systems: All systems reviewed & are unremarkable except as noted in HPI and below Exam Narrative: Exam Narrative: morbidly obese Const: General: no acute distress and uncomfortable HENMT: General nose exam: Normal nares present Eyes: General: appearance normal, both eyes and all related structures Sclera: sclerae normal Neck: Neck: supple Resp: Effort & Inspection: normal respiratory effort Auscultation: clear to auscultation bilaterally Cardio: Rate: regular rate Rhythm: regular rhythm GI: Other: morbidly obese, bowel sounds are faint, surgical wound is intact. Skin: General skin exam: normal color Neuro: Speech: normal speech Sensory Exam: normal sensation Extrem: General: normal to inspection Psych: Affe
[2020-04-06] MEDS: INSULIN ASPART (*BKC) 100 UNITS/ML 32 UNITS SUB-Q ×2 (12:21→16:49)
[2020-04-06 16:41] LABS: Glucose Point of Care 118 (65-105)
[2020-04-06] MEDS: PRAVASTATIN SODIUM 20 MG TABLET 80 MG PO (17:45)
[2020-04-06] MEDS: MELATONIN 3 MG TABLET PO (21:22)
[2020-04-06] MEDS: CITALOPRAM HYDROBROMIDE 20 MG TABLET PO (21:22)
[2020-04-06] MEDS: INSULIN GLARGINE (*BKC) 100 UNITS/ML 50 UNITS SUB-Q (21:56)
[2020-04-06 22:03] LABS: Glucose Point of Care 135 (65-105)
[2020-04-07] VITALS (9 sets, daily range): BP systolic 128–148; BP diastolic 48–61; PULSE 80–92; RESP 16–22; TEMP 36.2–37; O2SAT 90–99
[2020-04-07] MEDS: LEVOTHYROXINE SODIUM 75 MCG TABLET PO (05:42)
[2020-04-07 06:10] LABS: Hematocrit 29.8 % (37.0-47.0); Hemoglobin 8.8 g/dL (12.0-15.0); Mean Corpuscular HGB Conc 29.5 g/dl (32-36); Mean Corpuscular Hemoglobin 25.4 pg (26-34); Mean Corpuscular Volume 86.1 fl (80-100); Mean Platelet Volume 10.4 fl (7.4-10.4); Platelet Count Result 195 k/mm3 (150-375); Red Blood Count 3.46 M/mm3 (4.2-5.4); Red Cell Distribution Width 16.1 % (11.5-14.5); White Blood Count 10.7 K/mm3 (4.5-10.0)
[2020-04-07 06:24] LABS: Anion Gap 3 mmol/L (8-16); Blood Urea Nitrogen 10 mg/dL (7-17); Calcium 8.5 mg/dL (8.4-10.2); Carbon Dioxide 34 mmol/L (22-30); Chloride 97 mmol/L (98-107); Estimated CRCL calculation 107 ml/min; Estimated Glomerular Filt Rate > 60; Glucose 162 mg/dL (65-105); Magnesium 1.8 mg/dL (1.6-2.3); Potassium 4.2 mmol/L (3.4-5.0); Sodium 134 mmol/L (137-145)
[2020-04-07 07:54] LABS: Glucose Point of Care 159 (65-105)
[2020-04-07] MEDS: INSULIN ASPART (*BKC) 100 UNITS/ML 28 UNITS SUB-Q (08:02)
[2020-04-07] MEDS: ENOXAPARIN 40 MG/0.4 ML SYRINGE SUB-Q (08:05)
[2020-04-07] MEDS: lisinopriL 20 MG TABLET 40 MG PO (08:05)
[2020-04-07] MEDS: amLODIPine BESYLATE 5 MG TABLET 10 MG PO (08:05)
[2020-04-07] MEDS: MIRABEGRON 50 MG ER TABLET PO (08:06)
[2020-04-07] MEDS: PREGABALIN (*CRX) 50 MG CAPSULE 100 MG PO ×3 (08:06→17:16)
[2020-04-07] MEDS: PANTOPRAZOLE 40 MG TABLET PO (08:06)
[2020-04-07] MEDS: SOLIFENACIN 5 MG TABLET PO (08:06)
[2020-04-07] MEDS: MAGNESIUM OXIDE 400 MG TABLET PO (08:06)
[2020-04-07] MEDS: MULTIVITAMINS THERAPEUTIC TAB (*BKC) 1 TABLET PO (08:06)
[2020-04-07] MEDS: ALVIMOPAN 12 MG CAPSULE PO ×2 (08:06→22:19)
[2020-04-07] MEDS: hydroCHLOROthiazide 12.5 MG CAPSULE PO (08:06)
[2020-04-07] MEDS: FLUTICASONE PROPIONATE 0.05% NA SPR 16 GM BTL (*BKC) 1 SPRAY NASAL ×2 (08:06→22:19)
[2020-04-07 11:36] LABS: Glucose Point of Care 173 (65-105)
[2020-04-07] MEDS: INSULIN ASPART (*BKC) 100 UNITS/ML 32 UNITS SUB-Q ×2 (11:36→17:12)
--- NOTE | 2020-04-07 12:43 | PM.IMPN ---
Progress Note: A&P Assessment and Plan (1) Adenocarcinoma of colon: Code(s): C18.9 - Malignant neoplasm of colon, unspecified Status: Acute Assessment and Plan: 04/07/20 12:43 Tiffany Malone is a 64 year old female Morbidly obese female with a past medical history diabetes, hypertension, hypothyroid DVT for which patient is taking warfarin, initially patient was seen in emergency depart with complaint of constipation, CT scan was done did not show significant pathology other than constipation, patient was discharged home on laxative, and followed up with GI and had a colonoscopy showed patient has a 25 mm x 30 mm fungating mass, on 04/05 patient was seen by surgery service and had a laparoscopy surgery and colon mass was removed we are consulted for medical management, today's on 04/07, patient stats passing gas but no BM today,on patient was seen by her surgeon started the patient on clear liquid, patient states the pain is minimal able to participate in PT OT, will continue Lovenox monitor H&H and once okay with surgeon will resume the Coumadin for DVT, will continue to monitor and further recommendation to follow. (2) Hx of deep venous thrombosis: Code(s): Z86.718 - Personal history of other venous thrombosis and embolism Status: Acute Assessment and Plan: patient is on Coumadin for DVT currently on hold, resume once okay with surgeon (3) Type 2 diabetes mellitus with hyperglycemia: Qualifiers: Diabetes mellitus adjunct faculty for medical terminology insulin use: with adjunct faculty for medical terminology use Qualified Code(s): E11.65 - Type 2 diabetes mellitus with hyperglycemia; Z79.4 - senior care (current) use of insulin Code(s): E11.65 - Type 2 diabetes mellitus with hyperglycemia Status: Acute Assessment and Plan: currently NPO will monitor with sliding scale and resume once patient is able to start the diabetic diet (4) Hypertension: Qualifiers: Hypertension type: essential hypertension Qualified Code(s): I10 - Essential (primary) hypertension Code(s): I10 - Essential (primary) hypertension Status: Acute Assessment and Plan: will continue home regimen and monitor Subjective Date/time seen: 04/07/20 12:43 Tiffany Malone is a 64 year old female Morbidly obese female with a past medical history diabetes, hypertension, hypothyroid DVT for which patient is taking warfarin, initially patient was seen in emergency depart with complaint of constipation, CT scan was done did not show significant pathology other than constipation, patient was discharged home on laxative, and followed up with GI and had a colonoscopy showed patient has a 25 mm x 30 mm fungating mass, on 04/05 patient was seen by surgery service and had a laparoscopy surgery and colon mass was removed we are consulted for medical management, today's on 04/07, patient stats passing gas but no BM today,on patient was seen by her surgeon started the patient on clear liquid, patient states the pain is minimal able to participate in PT OT, will continue Lovenox monitor H&H and once okay with surgeon will resume the Coumadin for DVT, will continue to monitor and further recommendation to follow. Review of Systems Review of Systems: All systems reviewed & are unremarkable except as noted in HPI and below Exam Narrative: Exam Narrative: morbidly obese Const: General: no acute distress and uncomfortable HENMT: General nose exam: Normal nares present Eyes: General: appearance normal, both eyes and all related structures Sclera: sclerae normal Neck: Neck: supple Resp: Effort & Inspection: normal respiratory effort Auscultation: clear to auscultation bilaterally Cardio: Rate: regular rate Rhythm: regular rhythm GI: Other: morbidly obese, bowel sounds are faint, surgical wound is intact. Skin: General skin exam: normal color Neuro: Speech: normal speech Sensory Exam: normal sensation Extr
--- NOTE | 2020-04-07 14:14 | PM.PNGS ---
Progress Note: A&P Assessment and Plan (1) Adenocarcinoma of colon: Code(s): C18.9 - Malignant neoplasm of colon, unspecified Status: Acute Assessment and Plan: doing well, cont soft diet, cont to await normal bowel fxn, PT, OOB/IS, plan for dc in am (2) Hx of deep venous thrombosis: Code(s): Z86.718 - Personal history of other venous thrombosis and embolism Status: Acute Assessment and Plan: ok to restart Coumadin Subjective Subjective Date/Time Seen: 04/07/20 14:14 Pt feels good, wants to go home, cordelia diet, small BMs, flatus Review of Systems Constitutional: Constitutional: Reports fatigue and Reports lethargy Cardiovascular: Cardiovascular: Reports no additional cardiovascular complaints Respiratory: Respiratory: Reports no additional respiratory complaints Gastrointestinal: Gastrointestinal: Reports abdominal pain, Denies bloating, Denies constipation, Denies diarrhea, Denies nausea and Denies vomiting Exam Const: General: no acute distress Resp: Auscultation: diminished lung sounds Cardio: Rate: regular rate Rhythm: regular rhythm GI: Other: soft, sl dist, ely TTP, incisions C/D/I Objective Data Vital Signs Vital Signs: Vital Signs - 24 hr 04/06/20 16:00 04/06/20 18:00 04/06/20 20:00 Temperature 36.6 C 36.5 C Pulse Rate 89 87 84 Respiratory Rate 22 H 22 H Blood Pressure 134/60 143/57 H Pulse Oximetry 95 93 04/06/20 20:25 04/07/20 00:00 04/07/20 04:00 Temperature 36.3 C L 36.2 C L Pulse Rate 85 80 Respiratory Rate 22 H 20 Blood Pressure 135/52 L 148/59 H Pulse Oximetry 91 91 90 04/07/20 08:00 04/07/20 10:00 04/07/20 10:49 Temperature 36.5 C Pulse Rate 92 90 Respiratory Rate 18 Blood Pressure 131/48 L Pulse Oximetry 96 92 04/07/20 12:00 Temperature Pulse Rate 89 Respiratory Rate Blood Pressure Pulse Oximetry Intake/Output Intake/Output: Intake & Output 04/04/20 04/05/20 04/06/20 04/07/20 23:59 23:59 23:59 23:59 Intake Total 2020 5278 3171 510 Output Total 40 2300 3100 1000 Balance 1981 2978 71 -490 Meds/Results Medications: Active Medications Generic Name Dose Route Start Last Admin Trade Name Freq PRN Reason Stop Dose Admin Acetaminophen 500 mg 04/04/20 13:14 04/06/20 09:03 Tylenol Tablet PO 500 mg Q6H PRN Administration Mild Pain (1-3) or Fever Hydrocodone Bitart/Acetaminophen 1 tab 04/04/20 13:14 04/05/20 20:41 [place] 5-325 Mg PO 1 tab Q4H PRN Administration Pain Rated 4-6 Alvimopan 12 mg 04/05/20 13:12 04/07/20 08:06 Entereg PO 04/12/20 13:13 12 mg Q12HR BASHIR Administration Amlodipine Besylate 10 mg 04/05/20 09:00 04/07/20 08:05 Norvasc PO 10 mg QAM BASHIR Administration Citalopram Hydrobromide 20 mg 04/04/20 21:00 04/06/20 21:22 Celexa PO 20 mg HS BASHIR Administration Enoxaparin Sodium 40 mg 04/05/20 09:00 04/07/20 08:05 Lovenox SUB-Q 40 mg DAILY BASHIR Administration Fluticasone Propionate 1 spray 04/05/20 21:00 04/07/20 08:06 Flonase 0.05% Nasal [place] NASAL 1 spray Q12HR BASHIR Administration Hydralazine HCl 10 mg 04/06/20 12:08 Apresoline Tablet PO QID PRN Blood Pressure - High 170s Hydrochlorothiazide 12.5 mg 04/05/20 09:00 04/07/20 08:06 Hydrochlorothiazide PO 12.5 mg DAILY BASHIR Administration Insulin Aspart 28 units 04/05/20 08:00 04/07/20 08:02 Novolog SUB-Q 28 units Q24H BASHIR Administration Insulin Aspart 32 units 04/05/20 12:00 04/07/20 11:36 Novolog SUB-Q 32 units Q24H BASHIR Administration Insulin Aspart 32 units 04/04/20 17:00 04/06/20 16:49 Novolog SUB-Q 32 units Q24H BASHIR Administration Insulin Glargine 125 units 04/04/20 21:00 04/06/20 21:36 Lantus SUB-Q Not Given HS BASHIR Ketorolac Tromethamine 30 mg 04/04/20 13:14 04/04/20 15:36 Toradol Inj IV PUSH 04/09/20 13:15 30 mg Q6H PRN Administration Pain Rated 4-6
[2020-04-07] MEDS: WARFARIN (*PBKC) 4 MG TABLET 8 MG PO (17:16)
[2020-04-07] MEDS: PRAVASTATIN SODIUM 20 MG TABLET 80 MG PO (17:16)
[2020-04-07 17:35] LABS: Glucose Point of Care 131 (65-105)
[2020-04-07] MEDS: MELATONIN 3 MG TABLET PO (22:19)
[2020-04-07] MEDS: CITALOPRAM HYDROBROMIDE 20 MG TABLET PO (22:19)
[2020-04-07 22:47] LABS: Glucose Point of Care 150 (65-105)
[2020-04-07] MEDS: INSULIN GLARGINE (*BKC) 100 UNITS/ML 60 UNITS SUB-Q (23:16)
[2020-04-08 02:00] VITALS: BP 119/50; PULSE 81; RESP 18; TEMP 36.4; O2SAT 96
[2020-04-08 06:00] VITALS: BP 148/70; PULSE 71; RESP 18; TEMP 36.6; O2SAT 96
[2020-04-08] MEDS: LEVOTHYROXINE SODIUM 75 MCG TABLET PO (06:28)
[2020-04-08 06:36] LABS: Hematocrit 29.8 % (37.0-47.0); Hemoglobin 8.9 g/dL (12.0-15.0); Mean Corpuscular HGB Conc 29.9 g/dl (32-36); Mean Corpuscular Hemoglobin 25.9 pg (26-34); Mean Corpuscular Volume 86.9 fl (80-100); Mean Platelet Volume 10.3 fl (7.4-10.4); Platelet Count Result 215 k/mm3 (150-375); Red Blood Count 3.43 M/mm3 (4.2-5.4); Red Cell Distribution Width 16.1 % (11.5-14.5); White Blood Count 9.5 K/mm3 (4.5-10.0)
[2020-04-08 06:43] LABS: Anion Gap 2 mmol/L (8-16); Blood Urea Nitrogen 11 mg/dL (7-17); Calcium 8.6 mg/dL (8.4-10.2); Carbon Dioxide 35 mmol/L (22-30); Chloride 97 mmol/L (98-107); Estimated CRCL calculation 107 ml/min; Estimated Glomerular Filt Rate > 60; Glucose 162 mg/dL (65-105); Magnesium 1.7 mg/dL (1.6-2.3); Potassium 4.5 mmol/L (3.4-5.0); Sodium 134 mmol/L (137-145)
[2020-04-08 06:50] LABS: Prothrombin Time 12.8 Seconds (11.1-14.7)
[2020-04-08] MEDS: amLODIPine BESYLATE 5 MG TABLET 10 MG PO (09:28)
[2020-04-08] MEDS: lisinopriL 20 MG TABLET 40 MG PO (09:28)
[2020-04-08] MEDS: MIRABEGRON 50 MG ER TABLET PO (09:28)
[2020-04-08] MEDS: INSULIN ASPART (*BKC) 100 UNITS/ML 28 UNITS SUB-Q (09:28)
[2020-04-08] MEDS: MAGNESIUM OXIDE 400 MG TABLET PO (09:28)
[2020-04-08] MEDS: MULTIVITAMINS THERAPEUTIC TAB (*BKC) 1 TABLET PO (09:29)
[2020-04-08] MEDS: ENOXAPARIN 40 MG/0.4 ML SYRINGE SUB-Q (09:29)
[2020-04-08] MEDS: PANTOPRAZOLE 40 MG TABLET PO (09:29)
[2020-04-08] MEDS: ALVIMOPAN 12 MG CAPSULE PO (09:29)
[2020-04-08] MEDS: hydroCHLOROthiazide 12.5 MG CAPSULE PO (09:29)
[2020-04-08] MEDS: SOLIFENACIN 5 MG TABLET PO (09:29)
[2020-04-08] MEDS: PREGABALIN (*CRX) 50 MG CAPSULE 100 MG PO ×2 (09:29→12:04)
[2020-04-08] MEDS: FLUTICASONE PROPIONATE 0.05% NA SPR 16 GM BTL (*BKC) 1 SPRAY NASAL (09:30)
--- NOTE | 2020-04-08 09:33 | PM.DS ---
DS: Admitting Diagnosis Admitting Diagnosis Admitting Diagnosis: Colon Cancer DS: Discharge Diagnosis Discharge Diagnosis (1) Adenocarcinoma of colon: Code(s): C18.9 - Malignant neoplasm of colon, unspecified Status: Acute Assessment and Plan: s/p colectomy, doing well, cont routine postop care, path reviewed, f/u 2 wks (2) Morbid obesity: Code(s): E66.01 - Morbid (severe) obesity due to excess calories Status: Acute Assessment and Plan: management per primary care team (3) Type 2 diabetes mellitus with hyperglycemia: Qualifiers: Diabetes mellitus usp insulin use: with usp use Qualified Code(s): E11.65 - Type 2 diabetes mellitus with hyperglycemia; Z79.4 - [facility] (current) use of insulin Code(s): E11.65 - Type 2 diabetes mellitus with hyperglycemia Status: Acute Assessment and Plan: stable, cont current home meds (4) Hypertension: Qualifiers: Hypertension type: essential hypertension Qualified Code(s): I10 - Essential (primary) hypertension Code(s): I10 - Essential (primary) hypertension Status: Acute Assessment and Plan: stable, cont current home meds (5) Hx of deep venous thrombosis: Code(s): Z86.718 - Personal history of other venous thrombosis and embolism Status: Acute Assessment and Plan: home anticoagulation restarted DS: Summary Hospital Course Reason for hospitalization: R colon cancer Hospital Course: Patient is a 64-year-old female with multiple medical issues that initially presented to my office with right-sided colon cancer. This was found during colonoscopy and tattooed at that time. Patient was brought to the operating room for hand assisted laparoscopic right colectomy, please see full operative report for details of that procedure. The patient has done very well postop, and Medicine was consulted for management of her multiple medical issues. Patient has been able to work with Physical therapy. Patient has had bowel function and is now tolerating a soft diet without issue. Patient's pain is well controlled with p.o. analgesia. Patient will now be discharged with home health. Patient is to follow up with me in 2 weeks. Status at Discharge Functional status at discharge: wheelchair bound Overall status at discharge: patient is progressing back to baseline Time Spent with Patient Time attestation: Total time spent providing and/or coordinating discharge services: Time spent: Less than 30 minutes Exam Const: General: no acute distress Resp: Auscultation: wheezes and diminished lung sounds Cardio: Rate: regular rate Rhythm: regular rhythm GI: Inspection: distended GI Palp: Yes Soft to palpation, No Tenderness to palpation present (GI), No Guarding due to palpation present (GI) and No Hernia present Other: incisions healing well DS: Data Data Completed and Pending Completed studies during hospitalization: Pending at discharge 04/04/20 11:54 Surgical [PTH] Routine Labs on day of discharge: Labs from last 24 hours 04/08/20 04/08/20 04/08/20 06:23 06:23 06:23 WBC 9.5 RBC 3.43 L Hgb 8.9 L Hct 29.8 L MCV 86.9 MCH 25.9 L MCHC 29.9 L RDW 16.1 H Plt Count 215 MPV 10.3 PT 12.8 INR 1.0 Sodium 134 L Potassium 4.5 Chloride 97 L Carbon Dioxide 35 H Anion Gap 2 L BUN 11 Creatinine 0.70 Estim Creat Clear Calc 107 Estimated GFR > 60 Glucose 162 H POC Capillary Glucose Calcium 8.6 Magnesium 1.7 04/07/20 04/07/20 04/07/20 22:25 17:16 11:33 WBC RBC Hgb Hct MCV MCH MCHC RDW Plt Count MPV PT INR Sodium Potassium Chloride Carbon Dioxide Anion Gap BUN Creatinine Estim Creat Clear Calc Estimated GFR Glucose POC Capillary Glucose 150 H 131 H 173 H Calcium Magnesium Dis
[2020-04-08 10:00] VITALS: BP 171/66; PULSE 85; RESP 18; TEMP 36.7; O2SAT 97
[2020-04-08 10:06] LABS: Glucose Point of Care 165 (65-105)
--- NOTE | 2020-04-08 10:18 | PCPTNOTE ---
Patient declined exercises stating she will be discharged later today. Home exercise program for LE was issued to patient and verbal and written instructions were given to patient. Patient voices understanding and demonstrated a few reps of exercises.
[2020-04-08 11:47] LABS: Glucose Point of Care 200 (65-105)
[2020-04-08] MEDS: INSULIN ASPART (*BKC) 100 UNITS/ML 32 UNITS SUB-Q (12:02)
--- NOTE | 2020-04-08 12:07 | PM.IMPN ---
Progress Note: A&P Assessment and Plan (1) Adenocarcinoma of colon: Code(s): C18.9 - Malignant neoplasm of colon, unspecified Status: Acute Assessment and Plan: 04/08/20 12:07 Tiffany Malone is a 64 year old female Morbidly obese female with a past medical history diabetes, hypertension, hypothyroid DVT for which patient is taking warfarin, initially patient was seen in emergency depart with complaint of constipation, CT scan was done did not show significant pathology other than constipation, patient was discharged home on laxative, and followed up with GI and had a colonoscopy showed patient has a 25 mm x 30 mm fungating mass, on 04/05 patient was seen by surgery service and had a laparoscopy surgery and colon mass was removed we are consulted for medical management, today's on 04/08, patient stats passing gas but no BM today,on patient was seen by her surgeon started the patient on clear liquid, patient states the pain is minimal able to participate in PT OT, Today patient was seen by her surgeon and have discharge the patient home, will go ahead stop Coumadin and start the patient on Eliquis for her DVT. (2) Hx of deep venous thrombosis: Code(s): Z86.718 - Personal history of other venous thrombosis and embolism Status: Acute Assessment and Plan: patient is on Coumadin for DVT currently on hold, resume once okay with surgeon, we have stopped Coumadin start the patient on Eliquis. (3) Type 2 diabetes mellitus with hyperglycemia: Qualifiers: Diabetes mellitus intermediate manager insulin use: with shelter use Qualified Code(s): E11.65 - Type 2 diabetes mellitus with hyperglycemia; Z79.4 - termite control service representative (current) use of insulin Code(s): E11.65 - Type 2 diabetes mellitus with hyperglycemia Status: Acute Assessment and Plan: currently NPO will monitor with sliding scale and resume once patient is able to start the diabetic diet (4) Hypertension: Qualifiers: Hypertension type: essential hypertension Qualified Code(s): I10 - Essential (primary) hypertension Code(s): I10 - Essential (primary) hypertension Status: Acute Assessment and Plan: will continue home regimen and monitor Subjective Date/time seen: 04/08/20 12:07 Tiffany Malone is a 64 year old female Morbidly obese female with a past medical history diabetes, hypertension, hypothyroid DVT for which patient is taking warfarin, initially patient was seen in emergency depart with complaint of constipation, CT scan was done did not show significant pathology other than constipation, patient was discharged home on laxative, and followed up with GI and had a colonoscopy showed patient has a 25 mm x 30 mm fungating mass, on 04/05 patient was seen by surgery service and had a laparoscopy surgery and colon mass was removed we are consulted for medical management, today's on 04/08, patient stats passing gas but no BM today,on patient was seen by her surgeon started the patient on clear liquid, patient states the pain is minimal able to participate in PT OT, Today patient was seen by her surgeon and have discharge the patient home, will go ahead stop Coumadin and start the patient on Eliquis for her DVT. Review of Systems Review of Systems: All systems reviewed & are unremarkable except as noted in HPI and below Exam Narrative: Exam Narrative: morbidly obese Const: General: no acute distress and uncomfortable HENMT: General nose exam: Normal nares present Eyes: General: appearance normal, both eyes and all related structures Sclera: sclerae normal Neck: Neck: supple Resp: Effort & Inspection: normal respiratory effort Auscultation: clear to auscultation bilaterally Cardio: Rate: regular rate Rhythm: regular rhythm GI: Other: morbidly obese, bowel sounds are faint, surgical wound is intact. Skin: General skin exam: normal color Neuro: Speech: normal speech Sensory
== END 2020-04-08 15:24 | disposition home health service (06) | DRG 330 ==
LOC: ANH2MED 14:41
PROVIDERS: Family Medicine; Admitting Provider Surgery; PCP Internal Medicine; Visit Provider Surgery
PROC: 0DTF4ZZ Resection of Right Large Intestine, Percutaneous Endoscopic Approach (ICD-10-PCS; CPT 44204; principal; 2020-04-04 10:30)
DX: C18.2 Malignant neoplasm of ascending colon (principal); Z68.44 Body mass index [BMI] 60.0-69.9, adult; E66.01 Morbid (severe) obesity due to excess calories; E11.42 Type 2 diabetes mellitus with diabetic polyneuropathy; E11.65 Type 2 diabetes mellitus with hyperglycemia; E78.00 Pure hypercholesterolemia, unspecified; E03.9 Hypothyroidism, unspecified; I10 Essential (primary) hypertension; Z23 Encounter for immunization; Z79.4 Long term (current) use of insulin; Z79.899 Other long term (current) drug therapy; Z86.010 Personal history of colon polyps; Z88.2 Allergy status to sulfonamides; Z88.1 Allergy status to other antibiotic agents; Z86.718 Personal history of other venous thrombosis and embolism; Z79.01 Long term (current) use of anticoagulants
CPT/HCPCS: 36415; 80048; 81001; 83735; 85027; 85610; 85730; 87077; 87086; 87088; 87186; 88309; 97110; 97116; 97161; 97165; A9270; C1751; J0131; J0330; J1580; J1650; J1815; J1885; J2250; J2270; J2405; J3010; J3475; J7120

== ENCOUNTER 2020-08-02 09:47 | Outpatient (CLI) | payer MEDICARE, MEDICAID, SELFPAY ==
--- NOTE | ~2020-08-02 | CT_ITS ---
EXAMINATION: CT abdomen pelvis w con DATE: 08/02/2020 11:18 INDICATION: Colon cancer. TECHNIQUE: Computed tomography (CT) of the abdomen and pelvis was performed with 100 mL Omnipaque 350 intravenous contrast. Automated exposure control and iterative reconstruction technique were employe d. The dose-length product was 1605.89 mGy-cm. COMPARISON: CT abdomen and pelvis 11/30/2019 FINDINGS: The visualized portions of the lung bases demonstrate mild atelectasis. There is a stable 6 mm nodule in left lower lobe. There is a stable 11 mm cavitary nodule with eccentric calcification i n right lower lobe. No pleural effusion. The heart size is normal. No pericardial effusion. There are coronary artery calcifications. The liver and spleen are normal. There are changes of cholecystectom y. The pancreas, adrenal glands, and left kidney are normal. There is cortical thinning in right kidn ey. There is an infraumbilical ventral hernia containing nonobstructed small bowel. There is a suprau mbilical ventral hernia containing fat. There is a supraumbilical ventral hernia containing a wall of transverse colon. There are changes of right hemicolectomy. There are no pathologically enlarged lym ph nodes. There is no free intraperitoneal fluid. There is skin thickening and mild subcutaneous fat stranding in the lower anterior abdominal wall, consistent with inflammation versus edema. There is s evere thoracolumbar spondylosis. IMPRESSION: 1. Two pulmonary nodules, stable from 11/30/2019, likely benign. Consider noncontrast, low-dose chest CT in one year. 2. Ventral hernias including an infraumbilical ventral hernia containing nonobstructed small bowel an d a supraumbilical ventral hernia containing a wall of nonobstructed transverse colon. Reviewed, dictated and finalized at [facility]. [facility] IMPRESSION: 1. Two pulmonary nodules, stable from 11/30/2019, likely benign. Consider noncon trast, low-dose chest CT in one year. 2. Ventral hernias including an infraumbilical ventral hernia containing nonobs tructed small bowel and a supraumbilical ventral hernia containing a wall of no nobstructed transverse colon.
[2020-08-02 10:40] LABS: Basophils Percent Auto 0.5 % (0.2-1.2); Eosinophils Absolute Auto 0.2 K/mm3 (0-0.3); Eosinophils Percent Auto 2.6 % (0-4.4); Hematocrit 36.1 % (37.0-47.0); Hemoglobin 10.4 g/dL (12.0-15.0); Immature Granulocyte Absolute 0.03 K/mm3 (0.00-0.031); Immature Granulocyte Percent A 0.4 % (0-0.5); Lymphocytes Absolute Auto 2.12 K/mm3 (0.9-3.2); Lymphocytes Percent Auto 25.2 % (18.3-44.2); Mean Corpuscular HGB Conc 28.8 g/dl (32-36); Mean Corpuscular Hemoglobin 22.2 pg (26-34); Monocytes Absolute Auto 0.9 K/mm3 (0.1-0.6); Monocytes Percent Auto 10.3 % (2.6-8.5); Neutrophils Absolute Auto 5.1 K/mm3 (1.3-6.7); Platelet Count Result 225 k/mm3 (150-375); Red Blood Count 4.69 M/mm3 (4.2-5.4); Red Cell Distribution Width 19.5 % (11.5-14.5); White Blood Count 8.4 K/mm3 (4.5-10.0)
[2020-08-02 10:54] LABS: Alanine Aminotransferase 22 U/L (4-35); Albumin Level 4.2 g/dL (3.5-5.1); Alkaline Phosphatase 68 U/L (38-126); Anion Gap 5 mmol/L (8-16); Aspartate Amino Transferase 21 U/L (14-36); Bilirubin,Total 0.3 mg/dL (0.2-1.3); Blood Urea Nitrogen 12 mg/dL (7-17); Calcium 9.2 mg/dL (8.4-10.2); Carbon Dioxide 34 mmol/L (22-30); Chloride 95 mmol/L (98-107); Estimated Glomerular Filt Rate > 60; Glucose 146 mg/dL (65-105); Potassium 4.1 mmol/L (3.4-5.0); Sodium 134 mmol/L (137-145)
[2020-08-02 10:57] LABS: Estimated Glomerular Filt Rate > 60
[2020-08-02 11:23] LABS: Carcinoembryonic Antigen 1.2 ng/mL (0.0-3.0)
== END 2020-08-02 09:48 | disposition home or self-care (01) ==
PROVIDERS: PCP Internal Medicine; Visit Provider Internal Medicine Hematology & Oncology
DX: C18.2 Malignant neoplasm of ascending colon (principal); K43.9 Ventral hernia without obstruction or gangrene; R91.8 Other nonspecific abnormal finding of lung field
CPT/HCPCS: 36415; 74177; 80053; 82378; 85025; Q9967

== ENCOUNTER 2020-11-28 11:46 | Outpatient (CLI) | payer MEDICARE, MEDICAID, SELFPAY ==
[2020-11-28 12:20] LABS: Basophils Percent Auto 0.4 % (0.2-1.2); Eosinophils Absolute Auto 0.2 K/mm3 (0-0.3); Eosinophils Percent Auto 1.9 % (0-4.4); Hematocrit 39.4 % (37.0-47.0); Hemoglobin 12.1 g/dL (12.0-15.0); Immature Granulocyte Absolute 0.04 K/mm3 (0.00-0.031); Immature Granulocyte Percent A 0.4 % (0-0.5); Lymphocytes Absolute Auto 2.11 K/mm3 (0.9-3.2); Lymphocytes Percent Auto 22.6 % (18.3-44.2); Mean Corpuscular HGB Conc 30.7 g/dl (32-36); Mean Corpuscular Hemoglobin 25.9 pg (26-34); Mean Corpuscular Volume 84.2 fl (80-100); Mean Platelet Volume 9.4 fl (7.4-10.4); Monocytes Absolute Auto 0.7 K/mm3 (0.1-0.6); Monocytes Percent Auto 7.9 % (2.6-8.5); Neutrophils Absolute Auto 6.2 K/mm3 (1.3-6.7); Neutrophils Percent Auto 66.8 % (45.5-73.1); Platelet Count Result 226 k/mm3 (150-375); Red Blood Count 4.68 M/mm3 (4.2-5.4); Red Cell Distribution Width 19.6 % (11.5-14.5); White Blood Count 9.4 K/mm3 (4.5-10.0)
[2020-11-28 12:46] LABS: Alanine Aminotransferase 19 U/L (4-35); Albumin Level 4.1 g/dL (3.5-5.1); Alkaline Phosphatase 60 U/L (38-126); Anion Gap 4 mmol/L (8-16); Aspartate Amino Transferase 20 U/L (14-36); Bilirubin,Total 0.3 mg/dL (0.2-1.3); Blood Urea Nitrogen 25 mg/dL (7-17); Calcium 9.6 mg/dL (8.4-10.2); Carbon Dioxide 32 mmol/L (22-30); Chloride 100 mmol/L (98-107); Estimated Glomerular Filt Rate > 60; Glucose 213 mg/dL (65-105); Potassium 4.5 mmol/L (3.4-5.0); Sodium 136 mmol/L (137-145)
[2020-11-28 13:13] LABS: Carcinoembryonic Antigen 1.1 ng/mL (0.0-3.0)
== END 2020-11-28 11:47 | disposition home or self-care (01) ==
PROVIDERS: PCP Internal Medicine; Visit Provider Internal Medicine Hematology & Oncology
DX: C18.2 Malignant neoplasm of ascending colon (principal)
CPT/HCPCS: 36415; 80053; 82378; 85025

== ENCOUNTER 2021-03-01 12:19 | Outpatient (CLI) | payer MEDICARE, MEDICAID, SELFPAY ==
--- NOTE | ~2021-03-01 | CT_ITS ---
EXAMINATION: CT abdomen pelvis w con DATE: 03/01/2021 13:00 INDICATION: Colon cancer restaging; history of malignant neoplasm of the ascending colon TECHNIQUE: Computed tomography (CT) of the abdomen and pelvis was performed with 100 cc Omnipaque 350 intravenous contrast. Automated exposure control and iterative reconstruction technique were employe d. Exam dose: 1538.48 mGy-cm total exam DLP. COMPARISON: 08/02/2020 CT abdomen pelvis FINDINGS: The lung bases are clear of infiltrate or consolidation. Cardiomegaly. No pericardial or pleural effusion. Diffuse hepatic steatosis. Status post cholecystectomy. No hepatic, splenic, pancreatic, adrenal or renal space-occupying mass lesion is detected. There is r ight renal scarring likely secondary to chronic pyelonephritis. No renal mass lesion or hydrouretero nephrosis. No urinary tract calculus. The urinary bladder is unremarkable. The uterus and adnexal areas are unremarkable. Wide midline ventral abdominal wall hernia containing unobstructed bowel, including colectomy surgica l site. Additional smaller fat containing ventral abdominal wall hernias are noted. Atherosclerotic calcification and normal caliber of the abdominal aorta. No intraperitoneal or retro peritoneal or pelvic mass lesion or lymphadenopathy is detected. No ascites. There is heterogeneous density patchy lucent and sclerotic areas of L2 vertebral body; metastasis is not excluded. Consider radionuclide bone scan. IMPRESSION: Patchy heterogeneous density of L2 vertebral body; consider radionuclide bone scan for p ossible metastasis Reviewed, dictated and finalized at [facility]. Reviewed, dictated and finalized at [facility]. IMPRESSION: Patchy heterogeneous density of L2 vertebral body; consider radion uclide bone scan for possible metastasis
[2021-03-01 12:54] LABS: Estimated Glomerular Filt Rate > 60
== END 2021-03-01 12:20 | disposition home or self-care (01) ==
LOC: ANHIMG 12:21
PROVIDERS: PCP Internal Medicine; Visit Provider Internal Medicine Hematology & Oncology
DX: C18.2 Malignant neoplasm of ascending colon (principal)
CPT/HCPCS: 74177; Q9967

== ENCOUNTER 2021-03-08 13:01 | Outpatient (CLI) | payer MEDICARE, MEDICAID, SELFPAY ==
[2021-03-08 13:34] LABS: Basophils Percent Auto 0.4 % (0.2-1.2); Eosinophils Absolute Auto 0.2 K/mm3 (0-0.3); Eosinophils Percent Auto 2.5 % (0-4.4); Hematocrit 39.3 % (37.0-47.0); Hemoglobin 12.5 g/dL (12.0-15.0); Immature Granulocyte Absolute 0.04 K/mm3 (0.00-0.031); Immature Granulocyte Percent A 0.5 % (0-0.5); Lymphocytes Absolute Auto 2.08 K/mm3 (0.9-3.2); Lymphocytes Percent Auto 24.6 % (18.3-44.2); Mean Corpuscular HGB Conc 31.8 g/dl (32-36); Mean Corpuscular Hemoglobin 28.7 pg (26-34); Mean Corpuscular Volume 90.3 fl (80-100); Mean Platelet Volume 10.8 fl (7.4-10.4); Monocytes Absolute Auto 0.9 K/mm3 (0.1-0.6); Monocytes Percent Auto 10.1 % (2.6-8.5); Neutrophils Absolute Auto 5.2 K/mm3 (1.3-6.7); Neutrophils Percent Auto 61.9 % (45.5-73.1); Platelet Count Result 210 k/mm3 (150-375); Red Blood Count 4.35 M/mm3 (4.2-5.4); Red Cell Distribution Width 14.9 % (11.5-14.5); White Blood Count 8.5 K/mm3 (4.5-10.0)
[2021-03-08 20:23] LABS: Alanine Aminotransferase 27 U/L (4-35); Albumin Level 3.9 g/dL (3.5-5.1); Alkaline Phosphatase 70 U/L (38-126); Anion Gap 10 mmol/L (8-16); Aspartate Amino Transferase 23 U/L (14-36); Bilirubin,Total 0.3 mg/dL (0.2-1.3); Blood Urea Nitrogen 16 mg/dL (7-17); Calcium 9.3 mg/dL (8.4-10.2); Carbon Dioxide 26 mmol/L (22-30); Chloride 100 mmol/L (98-107); Estimated Glomerular Filt Rate > 60; Glucose 297 mg/dL (65-110); Potassium 4.7 mmol/L (3.4-5.0); Sodium 136 mmol/L (137-145)
[2021-03-08 21:02] LABS: Carcinoembryonic Antigen 1.1 ng/mL (0.0-3.0)
== END 2021-03-08 13:02 | disposition home or self-care (01) ==
PROVIDERS: PCP Internal Medicine; Visit Provider Internal Medicine Hematology & Oncology
DX: C18.2 Malignant neoplasm of ascending colon (principal)
CPT/HCPCS: 36415; 80053; 82378; 85025

== ENCOUNTER 2021-04-18 00:43 | Day surgery (SDC) | payer MEDICARE, MEDICAID, SELFPAY ==
[2021-04-07 14:46] VITALS: BMI 58.6
--- NOTE | 2021-04-18 09:00 | PM.HPGS ---
History of Present Illness History of Present Illness Consent: Risks, benefits, and alternatives have been discussed and questions answered. Patient agrees to proceed with procedure. Chief complaint: hx of colon ca Narrative: Tiffany Malone is a 65 year old female with previous colon cancer s/p surgery, here to have another colonoscopy Review of Systems Constitutional: Constitutional: Denies headache(s) and Denies weakness Eyes: Eyes: Denies blurry vision ENT: Reports Normal hearing present, Denies headache(s) and Denies neck pain Cardiovascular: Cardiovascular: Denies chest pain and Denies dyspnea Respiratory: Respiratory: Denies dyspnea Gastrointestinal: Gastrointestinal: Reports no additional gastrointestinal complaints Genitourinary: Genitourinary: Denies dysuria Musculoskeletal: Musculoskeletal: Denies neck pain Integumentary/Breasts: Skin/Breast: Denies dry skin Neurologic: Reports Normal hearing present, Denies headache(s) and Denies weakness Psychiatric: Psychiatric: Denies anxiety Endocrine: Endocrine: Denies change in body appearance Hematologic/Lymphatic: Hematologic/Lymphatic: Denies easy bleeding Allergic/Immunologic: Allergic/Immunologic: Denies urticaria PMFSH Past Medical History Medical History (Updated 04/17/21 @ 12:00 by Quincy Darling MD) Acquired hypothyroidism Arthritis Constipation Controlled diabetes mellitus with hyperglycemia, with long-term current use of insulin DVT (deep venous thrombosis) High blood cholesterol High blood pressure Hypertension Kidney stones Left shoulder pain Lower abdominal pain Morbid obesity Peripheral polyneuropathy Spinal epidural abscess Thyroid disease Type 2 diabetes mellitus with hyperglycemia Surgical History Surgical History H/O colonoscopy History of cholecystectomy S/P colon resection 04/04/2020: CORINNA right colon resection Status post lumbar spine operative procedure for decompression of spinal cord Family History Family History Father Hypertension Diabetes mellitus Mother COPD (chronic obstructive pulmonary disease) Diabetes mellitus Hypertension Breast cancer Cervical cancer Sibling CHF (congestive heart failure) COPD (chronic obstructive pulmonary disease) Diabetes mellitus Hypertension Other Depression Family history of malignant neoplasm of breast Family history of obesity Family history of osteoporosis Family history of thyroid disease Social History Social History Smoking status: Never smoker Second hand tobacco smoke exposure: No Alcohol intake: never Substance use: never Substance use type: does not use Living arrangements: with family Additional occupation/education comments: disability Gender identity (if verbalized by the patient): Female Spiritual care concerns: No Meds Home Medications and Allergies Home Medications Medication Instructions Recorded Confirmed Type amlodipine 10 mg tablet 10 mg PO QAM 08/13/19 04/17/21 History blood sugar diagnostic #10 each 08/13/19 04/17/21 History citalopram 20 mg tablet 20 mg PO HS 08/13/19 04/17/21 History flash glucose sensor #1 each 08/13/19 04/17/21 History levothyroxine 75 mcg tablet 75 mcg PO QAM tablet 08/13/19 04/17/21 History lisinopril 40 mg tablet 40 mg PO DAILY 08/13/19 04/17/21 History omeprazole 20 mg capsule,delayed 20 mg PO QAM 08/13/19 04/17/21 History release hydrochlorothiazide 12.5 mg PO DAILY 11/30/19 04/17/21 History pravastatin 80 mg tablet 80 mg PO QPM tablet 01/14/20 04/17/21 History pregabalin 100 mg capsule 100 mg PO TID cap 01/14/20 04/17/21 History multivitamin 1 tablet PO DAILY 02/02/20 04/17/21 History zolpidem [Ambien] 5 mg PO HS PRN 03/29/20 04/17/21 History apixaban [Eliquis] 5 mg PO Q12HR #60 tablet 04/08/20
[2021-04-18 09:10] VITALS: BP 144/61; PULSE 101; RESP 20; TEMP 36.4; O2SAT 92
[2021-04-18 09:17] LABS: Glucose Point of Care 328 mg/dl (65-105)
[2021-04-18] MEDS: LACTATED RINGERS 1,000 ML 150 ML IV CONT (09:42)
--- NOTE | 2021-04-18 09:59 | WPDANESEPPF ---
Anes - Initial Pre Proc Eval Procedure: Operation Date: 04/18/21 10:00 Proposed Procedures p Screening Colonoscopy - Arthur Joshi MD Date/Time: 04/18/21 09:59 Surgeon: Arthur Joshi MD Pre Op Diagnosis: hx of colon ca Patient Data Age: 65 Gender: F Height: 1.6 m Weight: 150 kg Last Vital Signs Temp 97.5 F L 04/18/21 09:10 Pulse 101 H 04/18/21 09:10 Resp 20 04/18/21 09:10 BP 144/61 H 04/18/21 09:10 Pulse Ox 92 04/18/21 09:10 Allergies Allergy/AdvReac Type Severity Reaction Status Date / Time cephalexin Allergy Severe Rash/Hive Verified 04/18/21 09:02 Sulfa (Sulfonamide Allergy Intermediate Rash Verified 04/18/21 09:02 Antibiotics) Home Medications Medication Instructions Recorded Confirmed Type amlodipine 10 mg tablet 10 mg PO QAM 08/13/19 04/17/21 History blood sugar diagnostic #10 each 08/13/19 04/17/21 History citalopram 20 mg tablet 20 mg PO HS 08/13/19 04/17/21 History flash glucose sensor #1 each 08/13/19 04/17/21 History levothyroxine 75 mcg tablet 75 mcg PO QAM tablet 08/13/19 04/17/21 History lisinopril 40 mg tablet 40 mg PO DAILY 08/13/19 04/17/21 History omeprazole 20 mg capsule,delayed 20 mg PO QAM 08/13/19 04/17/21 History release hydrochlorothiazide 12.5 mg PO DAILY 11/30/19 04/17/21 History pravastatin 80 mg tablet 80 mg PO QPM tablet 01/14/20 04/17/21 History pregabalin 100 mg capsule 100 mg PO TID cap 01/14/20 04/17/21 History multivitamin 1 tablet PO DAILY 02/02/20 04/17/21 History zolpidem [Ambien] 5 mg PO HS PRN 03/29/20 04/17/21 History apixaban [Eliquis] 5 mg PO Q12HR #60 tablet 04/08/20 04/17/21 Rx pen needle, diabetic 31 gauge x #400 each 08/09/20 04/17/21 Rx /16 Hair,Nails and Skin Vitamin 1 cap PO DAILY 04/07/21 04/17/21 History coQ10 (ubiquinol) 100 mg PO DAILY 04/07/21 04/17/21 History insulin regular hum U-500 conc 100 unit SUBCUT BID 04/07/21 04/17/21 History [Humulin R U-500 (Conc) Kwikpen] metformin 500 mg PO QACDINNER 04/07/21 04/17/21 History oxybutynin chloride 10 mg PO DAILY 04/07/21 04/17/21 History vitamin E 1 tablet PO DAILY 04/07/21 04/17/21 History Laboratory Tests 04/18/21 09:14 POC Capillary Glucose 328 mg/dl H mg/dl (65-105) Patient hx anesthesia problems: none Family hx anesthesia problems: none Results Review: All pre-operative results and documents have been reviewed as part of the pre-operative evaluation. [facility] Past Medical History Medical History (Updated 04/17/21 @ 12:00 by Quincy Darling MD) Acquired hypothyroidism Arthritis Constipation Controlled diabetes mellitus with hyperglycemia, with long-term current use of insulin DVT (deep venous thrombosis) High blood cholesterol High blood pressure Hypertension Kidney stones Left shoulder pain Lower abdominal pain Morbid obesity Peripheral polyneuropathy Spinal epidural abscess Thyroid disease Type 2 diabetes mellitus with hyperglycemia Surgical History Surgical History H/O colonoscopy History of cholecystectomy S/P colon resection 04/04/2020: CORINNA right colon resection Status post lumbar spine operative procedure for decompression of spinal cord Family History Family History Father Hypertension Diabetes mellitus Mother COPD (chronic obstructive pulmonary disease) Diabetes mellitus Hypertension Breast cancer Cervical cancer Sibling CHF (congestive heart failure) COPD (chronic obstructive pulmonary disease) Diabetes mellitus Hypertension Other Depression Family history of malignant neoplasm of breast Family history of obesity Family history of osteoporosis Family history of thyroid disease Social History Social History Smoking status: Never smoker Second hand tobacco smoke exposure: No Alcohol intake: never
[2021-04-18 10:32] VITALS: BP 128/95; PULSE 100; RESP 28; O2SAT 93
[2021-04-18 10:42] VITALS: BP 166/81; PULSE 94; RESP 27; O2SAT 94
[2021-04-18 10:52] VITALS: BP 173/95; PULSE 89; RESP 27; O2SAT 93
[2021-04-18 10:57] LABS: Glucose Point of Care 337 mg/dl (65-105)
== END 2021-04-18 11:10 | disposition home or self-care (01) ==
PROVIDERS: PCP Internal Medicine; Visit Provider Internal Medicine Gastroenterology
PROC: 0DJD8ZZ Inspection of Lower Intestinal Tract, Via Natural or Artificial Opening Endoscopic (ICD-10-PCS; CPT 45378; principal; 2021-04-18 10:00)
DX: Z12.11 Encounter for screening for malignant neoplasm of colon (principal); D12.3 Benign neoplasm of transverse colon; Z85.038 Personal history of other malignant neoplasm of large intestine; Z90.49 Acquired absence of other specified parts of digestive tract; Z98.0 Intestinal bypass and anastomosis status; I10 Essential (primary) hypertension; E78.00 Pure hypercholesterolemia, unspecified; E11.42 Type 2 diabetes mellitus with diabetic polyneuropathy; E07.9 Disorder of thyroid, unspecified; Z86.718 Personal history of other venous thrombosis and embolism; Z79.01 Long term (current) use of anticoagulants; Z79.4 Long term (current) use of insulin; Z79.84 Long term (current) use of oral hypoglycemic drugs; E66.01 Morbid (severe) obesity due to excess calories; Z68.43 Body mass index [BMI] 50.0-59.9, adult
CPT/HCPCS: 45385; 82948; 88305; J2704; J7120

== ENCOUNTER 2021-05-24 11:51 | Outpatient (CLI) | payer MEDICARE, MEDICAID, SELFPAY ==
[2021-05-24 12:12] LABS: Basophils Percent Auto 0.4 % (0.2-1.2); Eosinophils Absolute Auto 0.2 K/mm3 (0-0.3); Eosinophils Percent Auto 3.3 % (0-4.4); Hematocrit 40.3 % (37.0-47.0); Hemoglobin 12.4 g/dL (12.0-15.0); Immature Granulocyte Absolute 0.02 K/mm3 (0.00-0.031); Immature Granulocyte Percent A 0.3 % (0-0.5); Lymphocytes Percent Auto 28.9 % (18.3-44.2); Mean Corpuscular HGB Conc 30.8 g/dl (32-36); Mean Corpuscular Hemoglobin 28.4 pg (26-34); Mean Corpuscular Volume 92.4 fl (80-100); Monocytes Absolute Auto 0.8 K/mm3 (0.1-0.6); Monocytes Percent Auto 11.4 % (2.6-8.5); Neutrophils Absolute Auto 3.9 K/mm3 (1.3-6.7); Neutrophils Percent Auto 55.7 % (45.5-73.1); Platelet Count Result 193 k/mm3 (150-375); Red Blood Count 4.36 M/mm3 (4.2-5.4); Red Cell Distribution Width 14.7 % (11.5-14.5); White Blood Count 6.9 K/mm3 (4.5-10.0)
[2021-05-24 12:15] LABS: Blood Urea Nitrogen 15 mg/dL (8-26); Carbon Dioxide 27 mmol/L (22-30); Chloride 98 mmol/L (98-109); Estimated Glomerular Filt Rate > 60; Glucose 241 mg/dL (70-105); Potassium 4.1 mmol/L (3.5-4.9); Sodium 140 mmol/L (138-146)
[2021-05-24 15:07] LABS: Alanine Aminotransferase 27 U/L (4-35); Albumin Level 4.2 g/dL (3.5-5.1); Alkaline Phosphatase 64 U/L (38-126); Anion Gap 9 mmol/L (8-16); Aspartate Amino Transferase 25 U/L (14-36); Bilirubin,Total 0.3 mg/dL (0.2-1.3); Blood Urea Nitrogen 16 mg/dL (7-17); Calcium 9.2 mg/dL (8.4-10.2); Carbon Dioxide 29 mmol/L (22-30); Chloride 100 mmol/L (98-107); Estimated Glomerular Filt Rate > 60; Glucose 232 mg/dL (65-110); Potassium 4.1 mmol/L (3.4-5.0); Sodium 138 mmol/L (137-145)
[2021-05-24 15:36] LABS: Carcinoembryonic Antigen 0.9 ng/mL (0.0-3.0)
== END 2021-05-24 11:52 | disposition home or self-care (01) ==
LOC: ANHLAB 11:54
PROVIDERS: PCP Internal Medicine; Visit Provider Internal Medicine Hematology & Oncology
DX: C18.2 Malignant neoplasm of ascending colon (principal)
CPT/HCPCS: 36415; 80048; 80053; 82378; 85025

== ENCOUNTER 2021-09-12 11:06 | Outpatient (CLI) | payer MEDICARE, MEDICAID, SELFPAY ==
[2021-09-12 11:59] LABS: Basophils Percent Auto 0.5 % (0.2-1.2); Eosinophils Absolute Auto 0.2 K/mm3 (0-0.3); Eosinophils Percent Auto 2.3 % (0-4.4); Hematocrit 40.1 % (37.0-47.0); Hemoglobin 12.1 g/dL (12.0-15.0); Immature Granulocyte Absolute 0.04 K/mm3 (0.00-0.031); Immature Granulocyte Percent A 0.5 % (0-0.5); Lymphocytes Absolute Auto 1.48 K/mm3 (0.9-3.2); Lymphocytes Percent Auto 19.1 % (18.3-44.2); Mean Corpuscular HGB Conc 30.2 g/dl (32-36); Mean Corpuscular Hemoglobin 28.3 pg (26-34); Mean Corpuscular Volume 93.7 fl (80-100); Mean Platelet Volume 10.6 fl (7.4-10.4); Monocytes Absolute Auto 0.8 K/mm3 (0.1-0.6); Monocytes Percent Auto 10.6 % (2.6-8.5); Neutrophils Absolute Auto 5.2 K/mm3 (1.3-6.7); Platelet Count Result 203 k/mm3 (150-375); Red Blood Count 4.28 M/mm3 (4.2-5.4); Red Cell Distribution Width 14.8 % (11.5-14.5); White Blood Count 7.7 K/mm3 (4.5-10.0)
[2021-09-12 12:09] LABS: Alanine Aminotransferase 21 U/L (4-35); Albumin Level 4.1 g/dL (3.5-5.1); Alkaline Phosphatase 76 U/L (38-126); Anion Gap 6 mmol/L (8-16); Aspartate Amino Transferase 20 U/L (14-36); Bilirubin,Total 0.4 mg/dL (0.2-1.3); Blood Urea Nitrogen 21 mg/dL (7-17); Carbon Dioxide 32 mmol/L (22-30); Chloride 99 mmol/L (98-107); Estimated Glomerular Filt Rate > 60; Glucose 226 mg/dL (65-110); Potassium 4.6 mmol/L (3.4-5.0); Sodium 137 mmol/L (137-145)
[2021-09-12 12:40] LABS: Carcinoembryonic Antigen 1.4 ng/mL (0.0-3.0)
== END 2021-09-12 11:07 | disposition home or self-care (01) ==
PROVIDERS: PCP Internal Medicine; Visit Provider Internal Medicine Hematology & Oncology
DX: C18.2 Malignant neoplasm of ascending colon (principal)
CPT/HCPCS: 36415; 80053; 82378; 85025

== ENCOUNTER 2021-10-17 08:59 | Outpatient (CLI) | payer MEDICARE, MEDICAID, SELFPAY ==
--- NOTE | ~2021-10-17 | CT_ITS ---
EXAMINATION: CT abdomen pelvis w con EXAM DATE: 10/17/2021 09:27 INDICATION: Lung mass. Colon cancer. TECHNIQUE: Spiral CT of the abdomen and pelvis was performed following intravenous injection of 100 m L Omnipaque 350. Axial, coronal and sagittal images of the abdomen and pelvis were reviewed. The do se-length product (DLP) for this examination was 1607.18 mGy-cm. The exposure was tailored according to patient size (auto mA exposure control), and iterative reconstruction (ASIR) was used as addition al dose reduction technique. Comparison is made to prior examination from 09/01/2020. FINDINGS: Portions of the abdominal subcutaneous fat outside the [id number]. There is hepatic nick atosis without suspicious focal lesion identified. Spleen, adrenal glands, pancreas are unremarkable. There are cholecystectomy clips. Portal and splenic veins are patent. Kidneys enhance symmetrical ly. There is no hydronephrosis. There are scattered regions of right renal cortical scarring. The u terus is unremarkable. The bladder is unremarkable. There is no retroperitoneal or pelvic lymphade nopathy. Surgical changes at the cecal base, which is located in a moderate-sized infraumbilical hernia. There is a supraumbilical hernia which is smaller and appears to contain only fat, although this is only p artially imaged due to body habitus. The stomach and small bowel are unremarkable. There is moderate amount of colonic stool. No free intraperitoneal gas. Couple of basilar granulomas. There are n o osteoblastic or osteolytic lesions identified. IMPRESSION: 1. No evidence of metastatic disease. 2. Scattered regions right renal cortical scarring. 3. Midline abdominal wall hernias. 4. Hepatic steatosis. Reviewed, dictated and finalized at location A.
--- NOTE | ~2021-10-17 | CT_ITS ---
EXAMINATION: CT diagnostic chest wo con EXAM DATE: 10/17/2021 09:27 INDICATION: Colon cancer. Lung mass. TECHNIQUE: Spiral CT of the chest without contrast. Axial, coronal and sagittal images of the chest were reviewed. Coronal maximum intensity pixel images of chest reviewed. The dose-length product ( DLP) for this examination was 911.46 mGy-cm. The exposure was tailored according to patient size (au to mA exposure control), and iterative reconstruction (ASIR) was used as additional dose reduction te [place]nique. There is no prior study for comparison. FINDINGS: Right posterior sulcal calcified granuloma, stable. Smaller left basilar noncalcified gran uloma, stable. There are no pleural or pericardial effusions. Tracheobronchial tree is patent. Th ere is no mediastinal, hilar or axillary lymphadenopathy. There is no pneumothorax. There is mild cardiomegaly. There is moderate coronary arterial calcification, arterial sclerosis. There is mild to moderate thoracic spondylosis without osteoblastic or osteolytic lesions identified. IMPRESSION: 1. Several basilar granulomas. 2. Mild cardiomegaly. Reviewed, dictated and finalized at location A.
[2021-10-17 09:23] LABS: Estimated Glomerular Filt Rate > 60
== END 2021-10-17 09:00 | disposition home or self-care (01) ==
PROVIDERS: PCP Internal Medicine; Visit Provider Internal Medicine Hematology & Oncology
DX: R91.8 Other nonspecific abnormal finding of lung field (principal); C18.2 Malignant neoplasm of ascending colon; K76.0 Fatty (change of) liver, not elsewhere classified; I51.7 Cardiomegaly
CPT/HCPCS: 71250; 74177; Q9967

== ENCOUNTER 2021-11-28 10:55 | Emergency (ER) | payer MEDICARE, MEDICAID, SELFPAY ==
--- NOTE | ~2021-11-28 | XR_ITS ---
EXAMINATION: XR hip LT 2V w AP pelvis DATE: 11/28/2021 12:53 INDICATION: Left hip pain. TECHNIQUE: An anteroposterior view pelvis and 2 views of left hip were obtained. COMPARISON: CT abdomen and pelvis 10/17/2021 FINDINGS: Bone alignment is normal. No fracture. There is mild osteoarthritis of the hips. There is s evere lumbar spondylosis. IMPRESSION: 1. Mild osteoarthritis of the hips. Reviewed, dictated and finalized at location B.
--- NOTE | ~2021-11-28 | XR_ITS ---
EXAMINATION: XR finger 3rd RT min 2V DATE: 11/28/2021 12:53 INDICATION: Distal nailbed pain at the right third digit TECHNIQUE: Dorsal palmar, lateral and 2 oblique views of the right third digit were obtained COMPARISON: None FINDINGS: Appears to be mild widening of the scapholunate interval which could be seen with scapholunate ligame nt tear/insufficiency. Bone alignment is otherwise normal. Soft tissue swelling at the right third di git with more prominent asymmetric soft tissue swelling at the ulnar aspect of the distal tip of the digit. No soft tissue gas or radiopaque foreign bodies. No fracture. No cortical erosions or perioste al reaction. Moderate polyarticular osteoarthritis at the distal radioulnar, first carpometacarpal an d at the visualized interphalangeal joints. IMPRESSION: 1. Soft tissue swelling at the left third digit with no acute osseous abnormality. 2. 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 3. Possible tear/insufficiency of the scapholunate ligament with mild widening of the scapholunate in terval. Reviewed, dictated and finalized at location A. IMPRESSION: 1. Soft tissue swelling at the left third digit with no acute osseous abnormali ty. 2. 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 3. Possible tear/insufficiency of the scapholunate ligament with mild widening of the scapholunate interval.
[2021-11-28 11:03] VITALS: BP 115/51; PULSE 101; RESP 20; TEMP 36.6; O2SAT 92
--- NOTE | 2021-11-28 13:16 | ED.GENADULT ---
HPI - General Adult General Chief complaint: Fall Stated complaint: fell - left hip pain Time Seen by Provider: 11/28/21 12:01 History of Present Illness HPI narrative: Patient is a 66-year-old female who presents ER with multiple complaints. Her first complaint is that she is developed a blister over the top of her left foot over the last 2 days. Patient has chronic edema and is poorly mobile. She has weeping in the other leg that she reports is unchanged. No chest pain or shortness of breath. No new cough. She wears compression machines to keep the edema out of her legs at home. Her next complaint is that her right third digit has an infection around the fingernail. Its been ongoing for several weeks and she has been on 2 separate courses of antibiotics including Levaquin and then clindamycin. She took her last pill yesterday. Lastly she reports she had a fall 2 to 3 days ago and has had some left hip pain. She is still able to stand up and bear weight. No numbness or tingling to the affected extremity. She did not strike her head or lose consciousness. Related Data Home Medications Medication Instructions Recorded Confirmed amlodipine 10 mg tablet 10 mg PO QAM 08/13/19 11/16/21 blood sugar diagnostic #10 each 08/13/19 11/16/21 citalopram 20 mg tablet 20 mg PO HS 08/13/19 11/16/21 flash glucose sensor #1 each 08/13/19 11/16/21 levothyroxine 75 mcg tablet 75 mcg PO QAM tablet 08/13/19 11/16/21 lisinopril 40 mg tablet 40 mg PO DAILY 08/13/19 11/16/21 omeprazole 20 mg capsule,delayed 20 mg PO QAM 08/13/19 11/16/21 release hydrochlorothiazide 12.5 mg PO DAILY 11/30/19 11/16/21 pravastatin 80 mg tablet 80 mg PO QPM tablet 01/14/20 11/16/21 pregabalin 100 mg capsule 100 mg PO TID cap 01/14/20 11/16/21 multivitamin 1 tablet PO DAILY 02/02/20 11/16/21 zolpidem [Ambien] 5 mg PO HS PRN 03/29/20 11/16/21 Hair,Nails and Skin Vitamin 1 cap PO DAILY 04/07/21 11/16/21 coQ10 (ubiquinol) 100 mg PO DAILY 04/07/21 11/16/21 insulin regular hum U-500 conc 100 unit SUBCUT BID 04/07/21 11/16/21 [Humulin R U-500 (Conc) Jairpen] metformin 500 mg PO QACDINNER 04/07/21 11/16/21 oxybutynin chloride 10 mg PO DAILY 04/07/21 11/16/21 vitamin E 1 tablet PO DAILY 04/07/21 11/16/21 Allergies Allergy/AdvReac Type Severity Reaction Status Date / Time cephalexin Allergy Severe Rash/Hive Verified 11/16/21 11:07 Sulfa (Sulfonamide Allergy Intermediate Rash Verified 11/16/21 11:07 Antibiotics) Review of Systems Constitutional: Constitutional: Denies chills, Denies fever(s) and Denies weakness ENT: Denies nasal congestion and Denies sore throat Cardiovascular: Cardiovascular: Denies chest pain and Denies radiating jaw, neck or arm pain Respiratory: Respiratory: Denies cough, Denies dyspnea and Denies wheezing Gastrointestinal: Gastrointestinal: Denies abdominal pain, Denies nausea and Denies vomiting Musculoskeletal: Musculoskeletal: Reports arthralgias and Denies joint swelling Comments: Lower extremity edema Integumentary/Breasts: Comments: Right third digit infection. [facility] Past Medical History Medical History Acquired hypothyroidism Arthritis Constipation Controlled diabetes mellitus with hyperglycemia, with long-term current use of insulin DVT (deep venous thrombosis) High blood cholesterol High blood pressure Hypertension Kidney stones Left shoulder pain Lower abdominal pain Morbid obesity Peripheral polyneuropathy Spinal epidural abscess Thyroid disease Type 2 diabetes mellitus with hyperglycemia Surgical History Surgical History H/O colonoscopy (~2019) Colon cancer History of cholecystectomy (~1990) S/P colon resection (~2019) 04/04/2020: CORINNA right colon resection Status post lumbar spine operative procedure for decompression of spinal cord (~2012) Abscess on spine L3, 4, and 5 Family History Fami
[2021-11-28] MEDS: LIDO 1%/EPINEPHRINE 1:100,000 10 ML VIAL INFILTRATE (13:47)
[2021-11-28 14:36] VITALS: BP 153/88; PULSE 89; RESP 16; TEMP 37; O2SAT 100
== END 2021-11-28 14:37 | disposition home or self-care (01) ==
PROVIDERS: Emergency Provider Emergency Medicine; PCP Internal Medicine
DX: L03.011 Cellulitis of right finger (principal); E03.9 Hypothyroidism, unspecified; I10 Essential (primary) hypertension; E11.9 Type 2 diabetes mellitus without complications; Z86.718 Personal history of other venous thrombosis and embolism
CPT/HCPCS: 26010; 73140; 73502; 99284